=== PATIENT | female | born 1955 | race Caucasian/White ===

== ENCOUNTER 2022-11-25 22:08 | Inpatient (IN) ==
--- NOTE | 2022-11-25 22:49 | XRay Report ---
SINGLE VIEW CHEST CLINICAL HISTORY: Fall. FINDINGS: An AP, portable, supine chest radiograph is obtained. No prior studies are available for co mparison at the time of dictation. The heart is mildly enlarged noting atherosclerotic calcification of the thoracic aorta. The pulmonary vasculature is noncongested. The lungs and pleural spaces are cl ear. No pneumothorax is seen. The skeletal structures are osteopenic. The bony thorax is grossly inta ct. IMPRESSION: No acute cardiopulmonary abnormality. ACT 112: Negative or not required by law. Electronically signed by: Bao Mac M.D. 11/25/2022 10:48 PM
--- NOTE | 2022-11-25 22:54 | CT Scan Report ---
CT SCAN OF THE BRAIN WITHOUT IV CONTRAST CLINICAL HISTORY: Fall. Head injury. COMPARISON STUDY: No priors. TECHNIQUE: Unenhanced axial CT scan of the brain is performed from the vertex to the skull base. A do se lowering technique was utilized adhering to the principles of ALARA. CT DOSE: 547.75 mGy.cm FINDINGS: Brain parenchyma: There is age-related involutional change noting mild subcortical and periventricula r microangiopathic disease. There is no hemorrhage, mass effect, or evidence of acute territorial isc hemia by CT criteria. Fontana-white matter differentiation is preserved. No extra-axial fluid collection is seen. Ventricles, sulci, cisterns: Prominent secondary to involutional change. Intracranial vasculature: There is atherosclerotic calcification of the cavernous carotid and vertebr al arteries. Calvarium: Skeletal structures are osteopenic. There is no depressed calvarial fracture. Soft tissues: There is a small frontal scalp contusion. Sinuses and mastoids: The visualized paranasal sinuses are clear. The mastoid air cells are well pneu matized. Orbits: The bony orbits are grossly intact. IMPRESSION: There is no hemorrhage, mass effect, or evidence of acute territorial ischemia by CT xiang rivas. ACT 112: Negative or not required by law. Electronically signed by: Bao Mac M.D. 11/25/2022 10:51 PM
[2022-11-25 23:01] LABS: Basophils # (auto) 0.05 K/uL (0-0.2); Basophils % (auto) 0.6 %; Eosinophils # (auto) 0.08 K/uL (0-0.50); Eosinophils % (auto) 0.9 %; Hematocrit (blood only) 22.7 % (37.0-47.0); Hemoglobin 7.6 g/dl (12.0-16.0); Immature Granulocytes # (auto) 0.11 K/uL (0.01-0.20); Immature Granulocytes % (auto) 1.3 %; Lymphocytes # (auto) 1.36 K/uL (1.2-3.4); Lymphocytes % (auto) 15.7 %; Mean Corpuscular Hemoglobin 30.9 pg (25.0-34.0); Mean Corpuscular Hgb Conc 33.5 g/dL (32.0-36.0); Mean Corpuscular Volume 92.3 fL (80.0-100.0); Mean Platelet Volume 10.7 fL (9.4-12.4); Monocytes # (auto) 0.77 K/uL (0.11-0.59); Monocytes % (auto) 8.9 %; Neutrophils % (auto) 72.6 %; Platelet Count 276 K/uL (130-400); RDW Coefficient of Variation 16.1 % (11.5-14.5); RDW Standard Deviation 53.7 fL (36.4-46.3); Red Blood Count 2.46 M/uL (4.20-5.40); White Blood Count 8.67 K/ul (4.8-10.8)
[2022-11-25 23:17] LABS: Albumin Globulin Ratio 0.8 (0.9-2); Albumin Level 2.2 gm/dl (3.4-5.0); BUN Creatinine Ratio 24.6 (10-20); Bilirubin,Total 0.2 mg/dl (0.2-1.0); Calcium 7.1 mg/dl (8.6-10.3); Creatinine Clr Calc Pharmacy 36.3 ml/min; Est GFR (African American) 47.4 ml/min; Est GFR (Non-African American) 40.9 ml/min; Globulin 2.7 gm/dl (2.5-4.0); Magnesium 1.4 mg/dl (1.7-2.4); Potassium 4.1 mmol/L (3.5-5.1); Total Protein 4.9 gm/dl (6.0-8.3)
[2022-11-25 23:23] LABS: Polychromasia 1+
--- NOTE | 2022-11-25 23:31 | CT Scan Report ---
Exam(s): CT C SPINE EXAM: CT Cervical Spine Without Intravenous Contrast CLINICAL HISTORY: Reason for exam: fall. TECHNIQUE: Axial computed tomography images of the cervical spine without intravenous contrast. Automated exposure control was utilized for the study. A dose lowering technique was utilized adhering to the principles of ALARA. COMPARISON: No relevant prior studies available. FINDINGS: Vertebrae: Straightening of the normal cervical lordosis. No acute fracture. Discs/spinal canal/neural foramina: Mild to moderate multilevel degenerative change. No spinal canal stenosis. Soft tissues: Unremarkable. Vasculature: Dense calcific atherosclerotic disease of the carotid bulbs. IMPRESSION: No acute findings in the cervical spine. Electronically signed by: Imer Brunner MD 11/25/22 23:30 PM
--- NOTE | 2022-11-26 00:01 | Emergency Department Note ---
Impression & Plan Fall, Hallucinations ED Provider Note Provider: Navid Del Valle MD DATE OF SERVICE: 11/25/2022 CHIEF COMPLAINT: Fall HISTORY OF PRESENT ILLNESS: Patient is a 67-year-old female history of sepsis and bacteremia related to pyelonephritis status post nephrectomy at [place] with a history of heart failure and cardiomyopathy as well as atrial fibrillation and type 2 diabetes presenting from [facility] today after a fall. Patient is in a c-collar upon my evaluation resting in the bed. Patient without current pain complaint at this time. Denies headache or dizziness. Denies neck pain. Denies injury to her extremities or chest pain. Denies any significant dizziness. Is a little bit fatigued requiring some prompting to talk to me. Did have evening medications including Ambien before coming today by report. Patient states that she just felt weak and cannot really describe more what happened she fell and struck her head. Patient called prior to arrival and reported that she did have a bit of a headache for them and fell and was coming in for evaluation. Fall was around 915p by their report. PAST MEDICAL HISTORY: As noted above MEDICATIONS: Reviewed medication list in the facility includes subcu heparin as well as Ambien SOCIAL HISTORY: Currently in [facility] for rehab PHYSICAL EXAM: GENERAL: alert and oriented to verbal stimuli initially resting with eyes closed in no acute distress on stretcher with cervical collar in place Head: normocephalic and atraumatic EYES: No injection, discharge or icterus. PERRL, EOMI. NECK: Trachea midline. Supple no midline cervical tenderness ENT: Mucous membranes pink and moist. Pharynx without erythema or exudate. LUNGS: Airway patent. No retractions. Breath sounds clear with good air entry bilaterally. HEART: Regular rate and rhythm. No chest wall tenderness ABDOMEN: Soft and non-tender, without guarding or rebound. With a bandage healing left mid abdominal wound. SKIN: Acyanotic, warm, dry, without rashes EXTREMITIES: Without swelling, tenderness or deformity NEUROLOGICAL: No focal deficits. No aphasia. No facial droop or slurred speech. Normal strength and tone in the extremities. Sensation to gross touch normal. EK bpm normal sinus rhythm. No PVC. No acute ST segment elevation or depression with a QTc of 471. CONTINUOUS CARDIAC MONITORING: was ordered and showed a heart rate of 70s-90s bpm in normal sinus rhythm GCS 15. Patient's laboratory studies and imaging reviewed. Differential includes Fracture, dislocation, contusion, intra-abdominal, pneumothorax, intrathoracic, intracranial, neurologic, compartment syndrome, as well as other pathologies. IMPRESSION/MEDICAL DECISION MAKING: Patient without clear evidence of physical trauma from fall. On exam do not see significant pain with palpation of the extremities thorax pelvis abdomen. No signs of compartment syndrome. Moves lower legs and hips well without significant discomfort and doubt fracture here. Abdominal wound seems to be healing fairly well. While somewhat drowsy did take an Ambien before coming in. CT of the head and cervical spine per radiology reports without evidence of acute fractures or intracranial injury/bleeding. Chest x-ray reassuring per radiology. Afebrile here not hypotensive actually somewhat hypertensive. Basic blood work here with anemia of 7.6 but no leukocytosis. No severe renal dysfu nction with mild hypomagnesemia. EKG is reassuring. We will get some magnesium repletion. Do not see any signs of active bleeding or significant pain indicative of active bleeding at this time. Hemoglobin has down trended from several days ago at 9.1 on the . To consider returning to the facility for evaluation of upon reevaluation patient again resting but arousable to discussion. However she states that her little grandchildren are running around the room and that she is seeing them when they obviously are not there. This could be a sequelae of just the Ambien but obviously given some confusion concerns about discharge at this time. Discussed with hospitalist for further observation here. Later alerted by nursing staff several hours later the patient got up was more alert and did remember the events earlier in the evening and is having some diarrhea. Stool testing ordered. Again question of this may be a component of her Ambien from earlier. Has been seen by the hospitalist. DIAGNOSIS: Fall, hypomagnesemia, anemia, hallucinations DISPOSITION: Being evaluated the hospitalist Patient was agreeable with this plan. Past Med/Surg History Social History Smoking Status: Never smoker Preferred Language: Spanish Feels Safe at Home: Yes Allergies Allergies Allergy/AdvReac Type Severity Reaction Status Date / Time alcohol Allergy Hives Verified 11/26/22 01:02 Penicillins Allergy Hives Verified 11/26/22 01:02 soap AdvReac Rash Verified 11/26/22 01:02 Home Meds Home Medications Medication Instructions Recorded Confirmed acetaminophen 325 mg tablet 650 mg PO Q4H PRN Pain/TEMP 11/25/22 11/25/22 (Tylenol) atorvastatin 10 mg tablet 10 mg PO HS 11/25/22 11/25/22 benzocaine 20 % mucosal gel 1 ea mucous membrane QID PRN 11/25/22 11/25/22 INSIDE OF LIP bupropion HCl 75 mg tablet 75 mg PO Q12H 11/25/22 11/25/22 calcium carbonate 500 mg-vitamin 1 tab PO DAILY 11/25/22 11/25/22 D3 10 mcg (400 unit) tablet (Calcium 500 + D) conj estrogen-medroxyprogesterone 1 tab PO DAILY 11/25/22 11/25/22 0.625 mg-2.5 mg tablet (Prempro) cyanocobalamin (vitamin B-12) 1,000 mcg PO DAILY 11/25/22 11/25/22 1,000 mcg tablet (Vitamin B-12) cyclobenzaprine 10 mg tablet 10 mg PO TID PRN MUSCLE SPASMS 11/25/22 11/25/22 docusate sodium 100 mg capsule 100 mg PO BIDM 11/25/22 11/25/22 ergocalciferol (vitamin D2) 1,250 1,250 mcg PO 2XWK 11/25/22 11/25/22 mcg (50,000 unit) capsule (Vitamin D2) escitalopram oxalate 10 mg tablet 20 mg PO DAILY 11/25/22 11/25/22 (Lexapro) famotidine 20 mg tablet 20 mg PO HS 11/25/22 11/25/22 ferrous sulfate 325 mg (65 mg 325 mg PO QDL 11/25/22 11/25/22 iron) tablet furosemide 40 mg tablet (Lasix) 40 mg PO DAILY 11/25/22 11/25/22 gabapentin 100 mg capsule 100 mg PO Q12H 11/25/22 11/25/22 heparin (porcine) 5,000 unit/mL 5,000 unit subcut Q8H 11/25/22 11/25/22 injection solution hydrocodone 5 mg-acetaminophen 325 1 tab PO TID PRN Pain (Scale Score 11/25/22 11/25/22 mg tablet 4-6) insulin glargine 100 unit/mL 12 unit subcut HS 11/25/22 11/25/22 subcutaneous solution (Lantus U-100 Insulin) insulin regular human 100 unit/mL 1 sliding scale dose subcut ACHS 11/25/22 11/25/22 injection solution (Humulin R Regular U-100 Insulin) magnesium hydroxide 400 mg/5 mL 30 ml PO DAILY PRN Constipation 11/25/22 11/25/22 oral suspension (Milk of Magnesia) metoprolol succinate 25 mg 12.5 mg PO DAILY 11/25/22 11/25/22 tablet,extended release 24 hr multivitamin with minerals 1 tab PO DAILY 11/25/22 11/25/22 naloxone 4 mg/actuation nasal spray 4 mg intranasal DIRECTED PRN 11/25/22 11/25/22 OVER SEDATION ondansetron HCl 4 mg tablet 4 mg PO Q4H PRN NAUSEA/VOMITING 11/25/22 11/25/22 pantoprazole 40 mg tablet,delayed 40 mg PO .AC BID 11/25/22 11/25/22 release polyethylene glycol 3350 17 17 g PO BID 11/25/22 11/25/22 gram/dose oral powder (Miralax) polyethylene glycol 3350 17 17 g PO QDL PRN Constipation 11/25/22 11/25/22 gram/dose oral powder (Miralax) sennosides 8.6 mg-docusate sodium 2 tab-cap PO BIDM 11/25/22 11/25/22 50 mg capsule (Senna Plus) sennosides 8.6 mg-docusate sodium 1 tab-cap PO QDL PRN Constipation 11/25/22 11/25/22 50 mg tablet (Senokot-S) zolpidem 5 mg tablet (Ambien) 12.5 mg PO HS 11/25/22 11/25/22 Results & Data (ED) Vital Signs Vital Signs - 24 hr 11/25/22 22:13 11/25/22 22:45 11/25/22 22:12 Temperature 36.6 C Temperature Source Oral Pulse Rate 88 88 89 Pulse Rate from SpO2 Sensor 88 Respiratory Rate 20 12 Respiratory Effort / Characteristics Non-Labored Spontaneous Respiratory Depth Normal Blood Pressure 151/74 H 151/74 H Blood Pressure Mean 99 99 Pulse Oximetry 97 97 Oxygen Delivery Method Room Air Room Air Sepsis Recent Fever Within 48 Hours No Sepsis New/Unexplained Change in Mental Status No Sepsis Action Taken by Nursing No Action Required 11/25/22 23:00 11/26/22 00:00 11/26/22 01:00 Temperature Temperature Source Pulse Rate 82 78 Pulse Rate from SpO2 Sensor 82 83 79 Respiratory Rate 18 16 Respiratory Effort / Characteristics Respiratory Depth Blood Pressure 148/76 H 150/74 H Blood Pressure Mean 100 99 Pulse Oximetry 98 94 95 Oxygen Delivery Method Room Air Room Air Room Air Sepsis Recent Fever Within 48 Hours Sepsis New/Unexplained Change in Mental Status Sepsis Action Taken by Nursing 11/26/22 02:00 Temperature Temperature Source Pulse Rate 76 Pulse Rate from SpO2 Sensor 76 Respiratory Rate 13 Respiratory Effort / Characteristics Respiratory Depth Blood Pressure Blood Pressure Mean Pulse Oximetry 99 Oxygen Delivery Method Room Air Sepsis Recent Fever Within 48 Hours Sepsis New/Unexplained Change in Mental Status Sepsis Action Taken by Nursing Laboratory Data 11/25/22 22:20 11/25/22 22:20 Lab Results 11/25/22 11/25/22 11/26/22 Range/Units 22:20 22:20 00:37 WBC 8.67 (4.8-10.8) K/ul RBC 2.46 L (4.20-5.40) M/uL Hgb 7.6 L (12.0-16.0) g/dl Hct 22.7 L (37.0-47.0) % MCV 92.3 (80.0-100.0) fL MCH 30.9 (25.0-34.0) pg MCHC 33.5 (32.0-36.0) g/dL RDW Std Deviation 53.7 H (36.4-46.3) fL RDW Coeff of Ramin 16.1 H (11.5-14.5) % Plt Count 276 (130-400) K/uL MPV 10.7 (9.4-12.4) fL Immature Gran % (Auto) 1.3 % Neut % (Auto) 72.6 % Lymph % (Auto) 15.7 % [place] % (Auto) 8.9 % Eos % (Auto) 0.9 % Baso % (Auto) 0.6 % Neut # (Auto) 6.30 (1.40-6.50) K/uL Lymph # (Auto) 1.36 (1.2-3.4) K/uL [place]win # (Auto) 0.77 H (0.11-0.59) K/uL Eos # (Auto) 0.08 (0-0.50) K/uL Baso # (Auto) 0.05 (0-0.2) K/uL Immature Gran # (Auto) 0.11 (0.01-0.20) K/uL Polychromasia 1+ Sodium 138 (136-145) mmol/L Potassium 4.1 (3.5-5.1) mmol/L Chloride 110 H (98-107) mmol/L Carbon Dioxide 22 (21-32) mmol/L Anion Gap 6 (3-11) BUN 33 H (6-23) mg/dl Creatinine 1.34 H (0.6-1.2) mg/dl Est Cr Clr Drug Dosing 36.3 ml/min Est GFR ( Amer) 47.4 ml/min Est GFR (Non-Af Amer) 40.9 ml/min BUN/Creatinine Ratio 24.6 H (10-20) Glucose 203 H (70-99(Fasting)) mg/dl Calcium 7.1 L (8.6-10.3) mg/dl Magnesium 1.4 L (1.7-2.4) mg/dl Total Bilirubin 0.2 (0.2-1.0) mg/dl AST 29 (13-39) U/L ALT 17 (7-52) U/L Alkaline Phosphatase 162 H (34-104) U/L Total Protein 4.9 L (6.0-8.3) gm/dl Albumin 2.2 L (3.4-5.0) gm/dl Globulin 2.7 (2.5-4.0) gm/dl Albumin/Globulin Ratio 0.8 L (0.9-2) SARS-CoV-2, RNA, NAAT NEGATIVE (NEGATIVE) Administered Medications Sodium Chloride (Nss 1000ml) 1,000 mls @ 75 mls/hr IV .[id number] ONE Stop: 11/26/22 14:05 Last Admin: 11/26/22 01:09 Dose: 75 mls/hr Documented By: LATHA Miscellaneous Information (Patient's Allergy Info Needs Entered) 1 each N/A Q3 0M VICKY Stop: 12/25/22 20:59 Last Admin: 11/26/22 01:09 Dose: 1 each Documented By: Admin: 11/26/22 01:09 Dose: 1 each Documented By: LATHA Discontinued Medications Magnesium Sulfate/Dextrose (Magnesium Sulfate / D5w) 1 gm in 100 mls @ 200 mls/hr IV Q30M VICKY Stop: 11/26/22 00:44 Last Infusion: 11/26/22 01:09 Dose: 0 mls/hr Documented By: Admin: 11/26/22 00:34 Dose: 200 mls/hr Documented By: Infusion: 11/26/22 00:34 Dose: 200 mls/hr Documented By: Admin: 11/26/22 00:07 Dose: 200 mls/hr Documented By: LATHA Imaging Data Radiologist's Impression: Chest X-Ray 11/25/22 22:20 SINGLE VIEW CHEST CLINICAL HISTORY: Fall. FINDINGS: An AP, portable, supine chest radiograph is obtained. No prior studies are available for comparison at the time of dictation. The heart is mildly enlarged noting atherosclerotic calcification of the thoracic aorta. The pulmonary vasculature is noncongested. The lungs and pleural spaces are clear. No pneumothorax is seen. The skeletal structures are osteopenic. The bony thorax is grossly intact. IMPRESSION: No acute cardiopulmonary abnormality. ACT 112: Negative or not required by law. Electronically signed by: Bao Mac M.D. 11/25/2022 10:[address] 11/25/22 22:21 CT SCAN OF THE BRAIN WITHOUT IV CONTRAST CLINICAL HISTORY: Fall. Head injury. COMPARISON STUDY: No priors. TECHNIQUE: Unenhanced axial CT scan of the brain is performed from the vertex to the skull base. A dose lowering technique was utilized adhering to the principles of ALARA. CT DOSE: 547.75 mGy.cm FINDINGS: Brain parenchyma: There is age-related involutional change noting mild subcortical and periventricular microangiopathic disease. There is no hemorrhage, mass effect, or evidence of acute territorial ischemia by CT criteria. Fontana-white matter differentiation is preserved. No extra-axial fluid collection is seen. Ventricles, sulci, cisterns: Prominent secondary to involutional change. Intracranial vasculature: There is atherosclerotic calcification of the cavernous carotid and vertebral arteries. Calvarium: Skeletal structures are osteopenic. There is no depressed calvarial fracture. Soft tissues: There is a small frontal scalp contusion. Sinuses and mastoids: The visualized paranasal sinuses are clear. The mastoid air cells are well pneumatized. Orbits: The bony orbits are grossly intact. IMPRESSION: There is no hemorrhage, mass effect, or evidence of acute territorial ischemia by CT criteria. ACT 112: Negative or not required by law. Electronically signed by: Bao Mac M.D. 11/25/2022 10:[address] 11/25/22 22:57 Exam(s): CT C SPINE EXAM: CT Cervical Spine Without Intravenous Contrast CLINICAL HISTORY: Reason for exam: fall. TECHNIQUE: Axial computed tomography images of the cervical spine without intravenous contrast. Automated exposure control was utilized for the study. A dose lowering technique was utilized adhering to the principles of ALARA. COMPARISON: No relevant prior studies available. FINDINGS: Vertebrae: Straightening of the normal cervical lordosis. No acute fracture. Discs/spinal canal/neural foramina: Mild to moderate multilevel degenerative change. No spinal canal stenosis. Soft tissues: Unremarkable. Vasculature: Dense calcific atherosclerotic disease of the carotid bulbs. IMPRESSION: No acute findings in the cervical spine. Electronically signed by: Imer Brunner MD 11/25/22 23:30 PM Discharge Plan Visit Data Chief Complaint: Fall ED Provider: Navid Del Valle Discharge Problem: Fall, Hallucinations Patient Disposition: Being Evaluated by Hospitalist Condition: Fair Forms Stand Alone Forms: [facility] [employer] Prescriptions Prescriptions: No Action cyclobenzaprine [Flexeril] 10 mg Tablet 10 mg PO TID PRN (Reason: MUSCLE SPASMS) furosemide [Lasix] 40 mg Tablet 40 mg PO DAILY Rx Instructions: STARTED 11/24/22 FOR 3 DAYS, ENDS 11/27/22. acetaminophen [Tylenol] 325 mg Tablet 650 mg PO Q4H PRN (Reason: Pain/TEMP) insulin glargine [Lantus U-100 Insulin] 100 unit/mL Solution 12 unit SUBCUT HS atorvastatin 10 mg Tablet 10 mg PO HS hydrocodone-acetaminophen 5-325 mg Tablet 1 tab PO TID PRN (Reason: Pain (Scale Score 4-6)) Rx Instructions: UNSURE OF STRENGTH, NOT NOTED ON MED LIST. ondansetron HCl [Zofran] 4 mg Tablet 4 mg PO Q4H PRN (Reason: NAUSEA/VOMITING) sennosides-docusate sodium [Senokot-S] 8.6-50 mg Tablet 1 tab-cap PO QDL PRN (Reason: Constipation) cyanocobalamin (vitamin B-12) [Vitamin B-12] 1,000 mcg Tablet 1,000 mcg PO DAILY famotidine 20 mg Tablet 20 mg PO HS magnesium hydroxide [Milk of Magnesia] 400 mg/5 mL Suspension 30 ml PO DAILY PRN (Reason: Constipation) pantoprazole 40 mg Tablet,Delayed Release (Dr/Ec) 40 mg PO .AC BID ferrous sulfate 325 mg (65 mg iron) Tablet 325 mg PO QDL Humulin R Regular U-100 Insuln 100 unit/mL Solution 1 sliding scale dose SUBCUT ACHS bupropion HCl 75 mg Tablet 75 mg PO Q12H docusate sodium 100 mg Capsule 100 mg PO BIDM zolpidem [Ambien] 5 mg Tablet 12.5 mg PO HS gabapentin 100 mg Capsule 100 mg PO Q12H metoprolol succinate 25 mg Tablet Extended Release 24 Hr 12.5 mg PO DAILY ergocalciferol (vitamin D2) [Vitamin D2] 1,250 mcg (50,000 unit) Capsule 1,250 mcg PO 2XWK Rx Instructions: WEDNESDAY & WEDNESDAYS multivitamin with minerals Tablet 1 tab PO DAILY polyethylene glycol 3350 [Miralax] 17 gram/dose Powder 17 g PO BID polyethylene glycol 3350 [Miralax] 17 gram/dose Powder 17 g PO QDL PRN (Reason: Constipation) benzocaine 20 % Gel 1 ea MUCOUS MEMBRANE QID PRN (Reason: INSIDE OF LIP) heparin (porcine) 5,000 unit/mL Solution 5,000 unit SUBCUT Q8H Prempro 0.625-2.5 mg tablet 1 tab PO DAILY escitalopram oxalate [Lexapro] 10 mg Tablet 20 mg PO DAILY calcium carbonate-vitamin D3 [Calcium 500 + D] 500 mg-10 mcg (400 unit) Tablet 1 tab PO DAILY naloxone 4 mg/actuation [place],Non-Aerosol 4 mg INTRANASAL DIRECTED PRN (Reason: OVER SEDATION) Senna Plus 8.6-50 mg Capsule 2 tab-cap PO BIDM Referrals Referrals: Varinder Wynne M.D. [Primary Care Provider] -
[2022-11-26] MEDS: MAGNESIUM SULFATE / D5W 1 GM/100 ML BAG IV SCH ×2 (00:07→00:34)
[2022-11-26] MEDS ORDERED: SODIUM CHLORIDE 0.9% 1000ML 1,000 ML IV ONE (00:46)
[2022-11-26] MEDS: Patient's ALLERGY Info needs ENTERED SCH ×4 (01:09→07:41)
[2022-11-26] MEDS ORDERED: Nursing to Pharmacy Communication SCH (01:30)
[2022-11-26 03:38] LABS: Thyroid Stimulating Hormone 10.468 uIu/ml (0.300-4.500)
--- NOTE | 2022-11-26 03:48 | History & Physical Report ---
Date of Service November 26, 2022 Assessment & Plan (1) Encephalopathy: Plan: Patient noted to be lethargic on exam. Multifactorial : Polypharmacy, patient on multiple neuropsychotropic medications Hypoglycemia, DM2 currently on insulin at rehab facility, suboptimal control as of recent hemoglobin A1c of 8.2 this month. Acute on chronic anemia, hemoglobin drop from baseline, FOBT done at the ER was positive Laxative induced diarrhea rule out C. difficile chronic diastolic heart failure, patient on the dry side hx PAF, patient NSR, outpatient Zio patch recommended by [facility] ICU HTN, slightly elevated ARF, improved kidney function following [facility] discharge last week hyperlipidemia, on statin Rx MED on CPAP history DVT as per records hx GERD recent R nephrectomy for emphysematous pyelonephritis Medical telemetry Appropriate to hold home neuropsychotropic meds for now until patient mentation back to baseline Decrease basal insulin, ISS BG goal 1 10-1 40, carb count coverage Transfuse PRBC to maintain hemoglobin at 8 and above Inpatient GI consult for occult GI bleed causing hemoglobin drop from baseline as per patient preference Hold laxatives for now, check C. difficile DVT prophylaxis with SCDs Re: Occult GI bleed Full code Text document was generated using Thoof voice recognition software. It may contain grammatical or spelling errors. Kindly contact undersigned for clarification of any documentation item in question. History of Present Illness Chief Complaint: Fall, weakness Primary Care Provider: Varinder Wynne M.D. History obtained from patient and records. Medical history significant for chronic diastolic heart failure (EF 55%, TTE 2022), PAF, HTN, hyperlipidemia, DM2 on oral medications, MED on CPAP, history DVT as per records, GERD, history of gastric bypass, chronic anemia (baseline hemoglobin 8-9), recent nephrectomy for complicated UTI, anxiety/mood disorder. Patient confined at [facility] from November 12 to November 15, 2022 for hyperglycemic crisis, rhabdomyolysis and urosepsis. Hemoglobin A1c noted to be 8.2. Initial TTE showed EF 30 to 35%. CT abdomen pelvis showed right hydronephrosis and perinephric stranding, abscesses, and emphysematous changes. Blood cultures Klebsiella erogenous. Patient transferred to [facility] and confined from November 15 to 2022 for Urology services for emphysematous pyelonephritis. Patient underwent right nephrectomy. Transient atrial fibrillation noted during ICU confinement. TTE showed EF of 55%. Outpatient Zio patch recommended. Serum creatinine 1.5, hemoglobin 9 on discharge from [facility] to [facility] rehab facility last week. Increased weakness noted at rehab facility yesterday. Patient chest pain, SOB, syncope. Mild headache symptoms. Watery stools without abdominal pain. Head trauma from fall. Patient noted to be more confused than usual. Patient brought to the ER for evaluation. 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 [employer] Allergies Allergy/AdvReac Type Severity Reaction Status Date / Time alcohol Allergy Hives Verified 11/26/22 01:02 Penicillins Allergy Hives Verified 11/26/22 01:02 soap AdvReac Rash Verified 11/26/22 01:02 Home Medications Medication Instructions Recorded Confirmed Type acetaminophen 325 mg tablet 650 mg PO Q4H PRN Pain/TEMP 11/25/22 11/25/22 History (Tylenol) atorvastatin 10 mg tablet 10 mg PO HS 11/25/22 11/25/22 History benzocaine 20 % mucosal gel 1 ea mucous membrane QID PRN 11/25/22 11/25/22 History INSIDE OF LIP bupropion HCl 75 mg tablet 75 mg PO Q12H 11/25/22 11/25/22 History calcium carbonate 500 mg-vitamin 1 tab PO DAILY 11/25/22 11/25/22 History D3 10 mcg (400 unit) tablet (Calcium 500 + D) conj estrogen-medroxyprogesterone 1 tab PO DAILY 11/25/22 11/25/22 History 0.625 mg-2.5 mg tablet (Prempro) cyanocobalamin (vitamin B-12) 1,000 mcg PO DAILY 11/25/22 11/25/22 History 1,000 mcg tablet (Vitamin B-12) cyclobenzaprine 10 mg tablet 10 mg PO TID PRN MUSCLE SPASMS 11/25/22 11/25/22 History docusate sodium 100 mg capsule 100 mg PO BIDM 11/25/22 11/25/22 History ergocalciferol (vitamin D2) 1,250 1,250 mcg PO 2XWK 11/25/22 11/25/22 History mcg (50,000 unit) capsule (Vitamin D2) escitalopram oxalate 10 mg tablet 20 mg PO DAILY 11/25/22 11/25/22 History (Lexapro) famotidine 20 mg tablet 20 mg PO HS 11/25/22 11/25/22 History ferrous sulfate 325 mg (65 mg 325 mg PO QDL 11/25/22 11/25/22 History iron) tablet furosemide 40 mg tablet (Lasix) 40 mg PO DAILY 11/25/22 11/25/22 History gabapentin 100 mg capsule 100 mg PO Q12H 11/25/22 11/25/22 History heparin (porcine) 5,000 unit/mL 5,000 unit subcut Q8H 11/25/22 11/25/22 History injection solution hydrocodone 5 mg-acetaminophen 325 1 tab PO TID PRN Pain (Scale Score 11/25/22 11/25/22 History mg tablet 4-6) insulin glargine 100 unit/mL 12 unit subcut HS 11/25/22 11/25/22 History subcutaneous solution (Lantus U-100 Insulin) insulin regular human 100 unit/mL 1 sliding scale dose subcut ACHS 11/25/22 11/25/22 History injection solution (Humulin R Regular U-100 Insulin) magnesium hydroxide 400 mg/5 mL 30 ml PO DAILY PRN Constipation 11/25/22 11/25/22 History oral suspension (Milk of Magnesia) metoprolol succinate 25 mg 12.5 mg PO DAILY 11/25/22 11/25/22 History tablet,extended release 24 hr multivitamin with minerals 1 tab PO DAILY 11/25/22 11/25/22 History naloxone 4 mg/actuation nasal spray 4 mg intranasal DIRECTED PRN 11/25/22 11/25/22 History OVER SEDATION ondansetron HCl 4 mg tablet 4 mg PO Q4H PRN NAUSEA/VOMITING 11/25/22 11/25/22 H istory pantoprazole 40 mg tablet,delayed 40 mg PO .AC BID 11/25/22 11/25/22 History release polyethylene glycol 3350 17 17 g PO BID 11/25/22 11/25/22 History gram/dose oral powder (Miralax) polyethylene glycol 3350 17 17 g PO QDL PRN Constipation 11/25/22 11/25/22 History gram/dose oral powder (Miralax) sennosides 8.6 mg-docusate sodium 2 tab-cap PO BIDM 11/25/22 11/25/22 History 50 mg capsule (Senna Plus) sennosides 8.6 mg-docusate sodium 1 tab-cap PO QDL PRN Constipation 11/25/22 11/25/22 History 50 mg tablet (Senokot-S) zolpidem 5 mg tablet (Ambien) 12.5 mg PO HS 11/25/22 11/25/22 History Past Med/Surg History Social History Smoking Status: Unknown if ever smoked Hx Alcohol Use: No Hx Substance Use: No Preferred Language: Guatemalan Beliefs That Will Affect Care: None Current Living Situation: Rehab Feels Safe at Home: Yes Review of Systems Review of Systems: As per HPI, all other systems reviewed and negative Physical Exam Physical Exam: GENERAL: Lethargic, comfortable, no respiratory distress SKIN: Pallor, warm HEENT: Pale palpebral conjunctivae, no ptosis, dry buccal mucosa NECK : Supple, no tenderness CHEST : Decreased breath sounds, no tenderness HEART : RRR, no obvious murmurs ABDOMEN: Some distention, nontender RECTAL : Intact sphincter, brown stool (FOBT negative) EXTREMITIES : No LE swelling/tenderness, no other conspicuous deformities noted NEUROLOGIC : Lethargic, no facial asymmetry, no other gross focality Results & Data Results & Data Vital Signs (Past 12 Hours) Vital Signs Temp Pulse Resp BP Pulse Ox O2 Del Method 11/26/22 03:00 75 19 97 Room Air 11/26/22 02:00 76 13 99 Room Air 11/26/22 01:00 78 16 150/74 H 95 Room Air 11/26/22 00:00 82 18 148/76 H 94 Room Air 11/25/22 23:00 98 Room Air 11/25/22 22:12 89 12 151/74 H 97 Room Air 11/25/22 22:45 36.6 C 88 20 151/74 H 97 Room Air 11/25/22 22:13 88 Laboratory Results Laboratory Results WBC 8.67 K/ul (4.8-10.8) 11/25/22 22:20 RBC 2.46 M/uL (4.20-5.40) L 11/25/22 22:20 Hgb 7.6 g/dl (12.0-16.0) L 11/25/22 22:20 Hct 22.7 % (37.0-47.0) L 11/25/22 22:20 MCV 92.3 fL (80.0-100.0) 11/25/22 22:20 MCH 30.9 pg (25.0-34.0) 11/25/22 22:20 MCHC 33.5 g/dL (32.0-36.0) 11/25/22 22:20 RDW Std Deviation 53.7 fL (36.4-46.3) H 11/25/22 22:20 RDW Coeff of Ramin 16.1 % (11.5-14.5) H 11/25/22 22:20 Plt Count 276 K/uL (130-400) 11/25/22 22:20 MPV 10.7 fL (9.4-12.4) 11/25/22 22:20 Immature Gran % (Auto) 1.3 % 11/25/22 22:20 Neut % (Auto) 72.6 % 11/25/22 22:20 Lymph % (Auto) 15.7 % 11/25/22 22:20 [place] % (Auto) 8.9 % 11/25/22 22:20 Eos % (Auto) 0.9 % 11/25/22 22:20 Baso % (Auto) 0.6 % 11/25/22 22:20 Neut # (Auto) 6.30 K/uL (1.40-6.50) 11/25/22 22:20 Lymph # (Auto) 1.36 K/uL (1.2-3.4) 11/25/22 22:20 [place] # (Auto) 0.77 K/uL (0.11-0.59) H 11/25/22 22:20 Eos # (Auto) 0.08 K/uL (0-0.50) 11/25/22 22:20 Baso # (Auto) 0.05 K/uL (0-0.2) 11/25/22 22:20 Immature Gran # (Auto) 0.11 K/uL (0.01-0.20) 11/25/22 22:20 Polychromasia 1+ 11/25/22 22:20 Sodium 138 mmol/L (136-145) 11/25/22 22:20 Potassium 4.1 mmol/L (3.5-5.1) 11/25/22 22:20 Chloride 110 mmol/L (98-107) H 11/25/22 22:20 Carbon Dioxide 22 mmol/L (21-32) 11/25/22 22:20 Anion Gap 6 (3-11) 11/25/22 22:20 BUN 33 mg/dl (6-23) H 11/25/22 22:20 Creatinine 1.34 mg/dl (0.6-1.2) H 11/25/22 22:20 Est Cr Clr Drug Dosing 36.3 ml/min 11/25/22 22:20 Est GFR ( Amer) 47.4 ml/min 11/25/22 22:20 Est GFR (Non-Af Amer) 40.9 ml/min 11/25/22 22:20 BUN/Creatinine Ratio 24.6 (10-20) H 11/25/22 22:20 Glucose 203 mg/dl (70-99(Fasting)) H 11/25/22 22:20 Calcium 7.1 mg/dl (8.6-10.3) L 11/25/22 22:20 Magnesium 1.4 mg/dl (1.7-2.4) L 11/25/22 22:20 Total Bilirubin 0.2 mg/dl (0.2-1.0) 11/25/22 22:20 AST 29 U/L (13-39) 11/25/22 22:20 ALT 17 U/L (7-52) 11/25/22 22:20 Alkaline Phosphatase 162 U/L (34-104) H 11/25/22 22:20 Total Protein 4.9 gm/dl (6.0-8.3) L 11/25/22 22:20 Albumin 2.2 gm/dl (3.4-5.0) L 11/25/22 22:20 Globulin 2.7 gm/dl (2.5-4.0) 11/25/22 22:20 Albumin/Globulin Ratio 0.8 (0.9-2) L 11/25/22 22:20 TSH 10.468 uIu/ml (0.300-4.500) H 11/25/22 22:20 SARS-CoV-2, RNA, NAAT NEGATIVE (NEGATIVE) 11/26/22 00:37 Impressions Chest X-Ray 11/25/22 22:20 SINGLE VIEW CHEST CLINICAL HISTORY: Fall. FINDINGS: An AP, portable, supine chest radiograph is obtained. No prior studies are available for comparison at the time of dictation. The heart is mildly enlarged noting atherosclerotic calcification of the thoracic aorta. The pulmonary vasculature is noncongested. The lungs and pleural spaces are clear. No pneumothorax is seen. The skeletal structures are osteopenic. The bony thorax is grossly intact. IMPRESSION: No acute cardiopulmonary abnormality. ACT 112: Negative or not required by law. Electronically signed by: Bao Mac M.D. 11/25/2022 10:[address] 11/25/22 22:21 CT SCAN OF THE BRAIN WITHOUT IV CONTRAST CLINICAL HISTORY: Fall. Head injury. COMPARISON STUDY: No priors. TECHNIQUE: Unenhanced axial CT scan of the brain is performed from the vertex to the skull base. A dose lowering technique was utilized adhering to the principles of ALARA. CT DOSE: 547.75 mGy.cm FINDINGS: Brain parenchyma: There is age-related involutional change noting mild subcortical and periventricular microangiopathic disease. There is no hemorrhage, mass effect, or evidence of acute territorial ischemia by CT criteria. Fontana-white matter differentiation is preserved. No extra-axial fluid collection is seen. Ventricles, sulci, cisterns: Prominent secondary to involutional change. Intracranial vasculature: There is atherosclerotic calcification of the cavernous carotid and vertebral arteries. Calvarium: Skeletal structures are osteopenic. There is no depressed calvarial fracture. Soft tissues: There is a small frontal scalp contusion. Sinuses and mastoids: The visualized paranasal sinuses are clear. The mastoid air cells are well pneumatized. Orbits: The bony orbits are grossly intact. IMPRESSION: There is no hemorrhage, mass effect, or evidence of acute territorial ischemia by CT criteria. ACT 112: Negative or not required by law. Electronically signed by: Bao Mac M.D. 11/25/2022 10:[address] 11/25/22 22:57 Exam(s): CT C SPINE EXAM: CT Cervical Spine Without Intravenous Contrast CLINICAL HISTORY: Reason for exam: fall. TECHNIQUE: Axial computed tomography images of the cervical spine without intravenous contrast. Automated exposure control was utilized for the study. A dose lowering technique was utilized adhering to the principles of ALARA. COMPARISON: No relevant prior studies available. FINDINGS: Vertebrae: Straightening of the normal cervical lordosis. No acute fracture. Discs/spinal canal/neural foramina: Mild to moderate multilevel degenerative change. No spinal canal stenosis. Soft tissues: Unremarkable. Vasculature: Dense calcific atherosclerotic disease of the carotid bulbs. IMPRESSION: No acute findings in the cervical spine. Electronically signed by: Imer Brunner MD 11/25/22 23:30 PM Diagnostic Findings EKG as per my interpretation :Rate 85, NSR, LAD, LAFB, septal infarct, T wave abnormalities septal leads, low voltage
[2022-11-26] MEDS ORDERED: MELATONIN 3 MG TAB PO PRN (03:54)
[2022-11-26 04:28] LABS: T4 Free Thyroxine 0.71 ng/dl (0.61-1.60)
[2022-11-26 04:30] LABS: Basophils # (auto) 0.05 K/uL (0-0.2); Basophils % (auto) 0.6 %; Eosinophils # (auto) 0.09 K/uL (0-0.50); Eosinophils % (auto) 1.1 %; Hematocrit (blood only) 25.5 % (37.0-47.0); Hemoglobin 8.2 g/dl (12.0-16.0); Immature Granulocytes % (auto) 1.2 %; Lymphocytes % (auto) 16.4 %; Mean Corpuscular Hemoglobin 29.4 pg (25.0-34.0); Mean Corpuscular Hgb Conc 32.2 g/dL (32.0-36.0); Mean Corpuscular Volume 91.4 fL (80.0-100.0); Mean Platelet Volume 9.8 fL (9.4-12.4); Monocytes # (auto) 0.72 K/uL (0.11-0.59); Monocytes % (auto) 8.4 %; Neutrophils # (auto) 6.18 K/uL (1.40-6.50); Neutrophils % (auto) 72.3 %; Platelet Count 324 K/uL (130-400); RDW Coefficient of Variation 15.9 % (11.5-14.5); RDW Standard Deviation 53.3 fL (36.4-46.3); Red Blood Count 2.79 M/uL (4.20-5.40); White Blood Count 8.54 K/ul (4.8-10.8)
[2022-11-26 04:50] LABS: BUN Creatinine Ratio 28.7 (10-20); Calcium 7.8 mg/dl (8.6-10.3); Creatinine Clr Calc Pharmacy 42.3 ml/min; Est GFR (Non-African American) 49.2 ml/min; Potassium 3.8 mmol/L (3.5-5.1)
[2022-11-26] MEDS ORDERED: GLUCAGON FOR INJ 1 MG VIAL SQ PRN (05:28)
[2022-11-26] MEDS ORDERED: ACETAMINOPHEN 325 MG TAB PO PRN (05:28)
[2022-11-26] MEDS ORDERED: GLUCOSE 40% GEL 15 GM TUBE PO PRN (05:28)
[2022-11-26] MEDS ORDERED: DEXTROSE 50% 50 ML SYRINGE IV PRN (05:28)
[2022-11-26] MEDS ORDERED: CARBOHYDRATES FOR HYPOGLYCEMIA PO PRN (05:28)
[2022-11-26] MEDS ORDERED: GLUCOSE 10 TAB/TUBE PO PRN (05:28)
[2022-11-26] MEDS ORDERED: POLYETHYLENE (MIRALAX) 17 GM PACK PO PRN (05:28)
[2022-11-26] MEDS: INSULIN ASPART PER UNIT CHARGE SC SCH ×4 (05:40→20:08)
[2022-11-26] MEDS ORDERED: PHARMACY GLYCEMIC MGMT CONSULT PRN (07:53)
[2022-11-26] MEDS ORDERED: D5W AND 1/2NSS 1,000 ML IV ONE (08:03)
[2022-11-26] MEDS: CYANOCOBALAMIN (B-12) 500 MCG TABLET PO SCH (08:16)
[2022-11-26] MEDS: PANTOprazole 40 MG TAB PO SCH ×2 (08:16→17:51)
[2022-11-26] MEDS: CEROVITE ADV FORMULA TAB PO SCH (08:16)
[2022-11-26] MEDS: METOPROLOL SUCC 25MG EXT REL TAB PO SCH (08:16)
[2022-11-26] MEDS: ACETAMINOPHEN 325 MG TAB PO PRN (08:19)
--- NOTE | 2022-11-26 10:58 | Gastrointestinal Consultation ---
Date of Consultation November 26, 2022 Assessment & Plan (1) Fall: (2) Anemia: Pt is a 67 yo female admitted after a fall. Noted to be anemic on presentation, currently blood ct similar to few day ago after her admission in [facility] for sepsis and s/p R nephrectomy 2/2 pyelonephritis. She denies any gross GI bleeding symptoms. Last EGD and colonoscopy in 2020 - Monitor blood ct and transfuse prn goal Hgb >7 - PPI coverage - Ferrous Sulfate 325mg daily - Monitor for s/s of GI bleeding - Consider repeat EGD and colonoscopy eval in OP setting for anemia eval - If blood ct decreases, consider CT abd/pelvis to r/o bleeding from nephrectomy bed - Avoid NSAIDs Supervising Physician Co-Signing Physician Notes I personally saw and evaluated the patient on 11/26/2022 with GEOVANNI Segura and agree with her findings and plan of care. 67 y/o F with history of gastric bypass admitted after a fall/syncopal episode found to have anemia with hgb of 7.6. Patient recently had a R nephrectomy 11/15 for sepsis and emphysematous pyelonephritis. hgb was 9.1 3 days ago. She states that she has had no signs of GI bleeding including melena, hematochezia, or hematemesis. States her stools are yellow and brown. Abdomen is soft and non- tender. Surgical site without obvious evidence of hematoma. She had an EGD and colonoscopy in 2020 were unremarkable. At this time she has no evidence of any GI bleeding. if H/H continues to drop wo uld recommend a CT of the abdomen and pelvis to make sure there is no bleeding from her recent nephrectomy. Otherwise we will plan for outpatient EGD and colonoscopy. Brittney Trinidad, DO Gastroenterology and Hepatology History of Present Illness Reason for Consultation: Anemia, occult GI bleed Requesting Physician: Dr. Power Ronquillo Attending Physician: Dr. Brittney Trinidad History of Present Illness Pt is a 67 yo female w w PMHx of gastric bypass, HTN, OA, HLD, DM II, Afib GERD, sepsis w bacteremia 2/2 pyelonephritis, s/p R nephrectomy at [facility] who presented yesterday w a fall at [facility]. She denies syncope, dizziness, CP, SOB. Just felt that she's weak. + frontal scalp contusion wo obvious fracture. She was found to be anemic on admission. Today's blood ct slightly increased w Hgb similar to when she was recently admitted at [facility] for her sepsis. She denies n/v, abd pain. Last night had BM and nurse told her there may be blood but she denies any dark tarry stools or rectal bleeding. Last EGD and colonoscopy in 2020 which were unremarkable. She denies NSAIDs, tobacco, ETOH. Allergies Allergy/AdvReac Type Severity Reaction Status Date / Time alcohol Allergy Hives Verified 11/26/22 01:02 Penicillins Allergy Hives Verified 11/26/22 01:02 soap AdvReac Rash Verified 11/26/22 01:02 Home Medications Medication Instructions Recorded Confirmed Type acetaminophen 325 mg tablet 650 mg PO Q4H PRN Pain/TEMP 11/25/22 11/25/22 History (Tylenol) atorvastatin 10 mg tablet 10 mg PO HS 11/25/22 11/25/22 History benzocaine 20 % mucosal gel 1 ea mucous membrane QID PRN 11/25/22 11/25/22 History INSIDE OF LIP bupropion HCl 75 mg tablet 75 mg PO Q12H 11/25/22 11/25/22 History calcium carbonate 500 mg-vitamin 1 tab PO DAILY 11/25/22 11/25/22 History D3 10 mcg (400 unit) tablet (Calcium 500 + D) conj estrogen-medroxyprogesterone 1 tab PO DAILY 11/25/22 11/25/22 History 0.625 mg-2.5 mg tablet (Prempro) cyanocobalamin (vitamin B-12) 1,000 mcg PO DAILY 11/25/22 11/25/22 History 1,000 mcg tablet (Vitamin B-12) cyclobenzaprine 10 mg tablet 10 mg PO TID PRN MUSCLE SPASMS 11/25/22 11/25/22 History docusate sodium 100 mg capsule 100 mg PO BIDM 11/25/22 11/25/22 History ergocalciferol (vitamin D2) 1,250 1,250 mcg PO 2XWK 11/25/22 11/25/22 History mcg (50,000 unit) capsule (Vitamin D2) escitalopram oxalate 10 mg tablet 20 mg PO DAILY 11/25/22 11/25/22 History (Lexapro) famotidine 20 mg tablet 20 mg PO HS 11/25/22 11/25/22 History ferrous sulfate 325 mg (65 mg 325 mg PO QDL 11/25/22 11/25/22 History iron) tablet furosemide 40 mg tablet (Lasix) 40 mg PO DAILY 11/25/22 11/25/22 History gabapentin 100 mg capsule 100 mg PO Q12H 11/25/22 11/25/22 History heparin (porcine) 5,000 unit/mL 5,000 unit subcut Q8H 11/25/22 11/25/22 History injection solution hydrocodone 5 mg-acetaminophen 325 1 tab PO TID PRN Pain (Scale Score 11/25/22 11/25/22 History mg tablet 4-6) insulin glargine 100 unit/mL 12 unit subcut HS 11/25/22 11/25/22 History subcutaneous solution (Lantus U-100 Insulin) insulin regular human 100 unit/mL 1 sliding scale dose subcut ACHS 11/25/22 11/25/22 History injection solution (Humulin R Regular U-100 Insulin) magnesium hydroxide 400 mg/5 mL 30 ml PO DAILY PRN Constipation 11/25/22 11/25/22 History oral suspension (Milk of Magnesia) metoprolol succinate 25 mg 12.5 mg PO DAILY 11/25/22 11/25/22 History tablet,extended release 24 hr multivitamin with minerals 1 tab PO DAILY 11/25/22 11/25/22 History naloxone 4 mg/actuation nasal spray 4 mg intranasal DIRECTED PRN 11/25/22 11/25/22 History OVER SEDATION ondansetron HCl 4 mg tablet 4 mg PO Q4H PRN NAUSEA/VOMITING 11/25/22 11/25/22 History pantoprazole 40 mg tablet,delayed 40 mg PO .AC BID 11/25/22 11/25/22 History release polyethylene glycol 3350 17 17 g PO BID 11/25/22 11/25/22 History gram/dose oral powder (Miralax) polyethylene glycol 3350 17 17 g PO QDL PRN Constipation 11/25/22 11/25/22 History gram/dose oral powder (Miralax) sennosides 8.6 mg-docusate sodium 2 tab-cap PO BIDM 11/25/22 11/25/22 History 50 mg capsule (Senna Plus) sennosides 8.6 mg-docusate sodium 1 tab-cap PO QDL PRN Constipation 11/25/22 11/25/22 History 50 mg tablet (Senokot-S) zolpidem 5 mg tablet (Ambien) 12.5 mg PO HS 11/25/22 11/25/22 History Patient History Social History Smoking Status: Unknown if ever smoked Hx Alcohol Use: No Hx Substance Use: No Preferred Language: Spanish Beliefs That Will Affect Care: None Current Living Situation: Rehab Feels Safe at Home: Yes Review of Systems Review of Systems: All systems reviewed & are unremarkable except as noted in HPI & below Physical Exam Constitutional: WD/WN, vitals as above well groomed, cooperative and comfortable Eyes: PERRL, conjunctivae normal, anicteric sclerae ENMT: external ear and nose normal, oropharynx normal Respiratory: normal respiratory effort, lungs clear to auscultation Cardiovascular: RRR, no murmur, no edema Gastrointestinal (Abdomen): normal bowel sounds, soft, nontender, no hepatosplenomegaly Skin: no rashes, warm and dry no jaundice Psychiatric: A+Ox3, euthymic affect Lymphatic: no lymphedema Results & Data Vital Signs (Past 12 Hours) Vital Signs Temp Pulse Pulse Resp BP BP BP 11/26/22 07:43 36.4 C L 73 16 162/75 H 11/26/22 05:41 36.9 C 72 14 135/72 11/26/22 05:41 11/26/22 03:00 75 19 11/26/22 02:00 76 13 11/26/22 01:00 78 16 150/74 H 11/26/22 00:00 82 18 148/76 H 11/25/22 23:00 Pulse Ox Pulse Ox O2 Del Method O2 Del Method 11/26/22 07:43 98 Room Air 11/26/22 05:41 97 Room Air 11/26/22 05:41 96 Room Air 11/26/22 03:00 97 Room Air 11/26/22 02:00 99 Room Air 11/26/22 01:00 95 Room Air 11/26/22 00:00 94 Room Air 11/25/22 23:00 98 Room Air
[2022-11-26 11:32] LABS: Appearance Urine Clear (Clear); Bacteria Urine Automated Negative (Negative); Bilirubin Urine Negative (Negative); Blood Urine 3+ (Negative); Color Urine Yellow; Epithelial Cell Urine Auto 20-30 /lpf (0-5); Glucose Urine UA Negative (Negative); Ketones Urine Negative (Negative); Leukocyte Esterase Urine 1+ (Negative); Nitrite Urine Negative (Negative); Protein Urine 1+ (Negative); RBC Urine Automated 0-4 /hpf (0-4); Specific Gravity Urine 1.012 (1.000-1.030); Urobilinogen Urine Negative (Negative)
[2022-11-26] MEDS: FERROUS SULFATE 325 MG TAB PO SCH (12:04)
--- NOTE | 2022-11-26 12:23 | Electrocardiogram Report ---
Test Reason : Blood Pressure : / mmHG Vent. Rate : 087 BPM Atrial Rate : 087 BPM P-R Int : 196 ms QRS Dur : 074 ms QT Int : 392 ms P-R-T Axes : 039 -26 046 degrees QTc Int : 471 ms Normal sinus rhythm Low voltage QRS Abnormal ECG No previous ECGs available Confirmed by Fermin Mike ([id number]) on 11/26/2022 12:23:08 PM Referred By: REFERRED SELF Confirmed By:Kota Mike
--- NOTE | 2022-11-26 12:37 | Pharmacy Report ---
Pharmacy Glycemic Short Note 2 - Date of Service November 26, 2022 - Glycemic Short BSG Results (Last 24 hours): 11/25/22 11/26/22 11/26/22 22:20 04:08 04:55 Glucose 203 H 45 L* POC Glucose 59 L* 11/26/22 11/26/22 11/26/22 05:03 05:33 07:54 Glucose POC Glucose 85 76 57 L* 11/26/22 11/26/22 11/26/22 07:55 08:22 11:52 Glucose POC Glucose 64 L* 104 H 144 H OUTPATIENT ANTIDIABETIC REGIMEN: * Glargine 12 units HS, Regular insulin ACHS * A1c pending ASSESSMENT: * Patient admitted from outside facility following fall with anemia. * Patient hypoglycemic this morning, started on one liter of D5 + 1/2 NS @ 50 ml/hr. Diet also advanced. * BSG up to 144 mg/dL at lunch. Will set 50% scale for basal tonight, hold if BSG <140 mg/dL * Novolog parameters were loosened to CF 45/ CR 20 by AM provider- continue for now. PLAN FOR INPATIENT GLYCEMIC CONTROL: * Hold outpatient oral diabetes medications * Basal insulin * Lantus 0/5 units SQ HS x1 * Bolus insulin * NovoLog per scale ACHS or Q6hrs while NPO * Goal Range: Low 110 mg/dL - High 140 mg/dL * Correction Factor: 45 mg/dL/unit * Nutritional / Prandial insulin per carb ratio of 1 unit per 20 grams CHO consumed
[2022-11-26 12:45] LABS: Adenovirus F 40/41 PCR Not Detected (NotDetected); Astrovirus PCR Not Detected (NotDetected); Campylobacter PCR Not Detected (NotDetected); Cryptosporidium PCR Not Detected (NotDetected); Cyclospora cayetanensis PCR Not Detected (NotDetected); Entamoeba histolytica PCR Not Detected (NotDetected); Enteroaggregative E.coli(EAEC) Not Detected (NotDetected); Enteropathogenic E.coli (EPEC) Not Detected (NotDetected); Enterotoxigenic E.coli (ETEC) Not Detected (NotDetected); Giardia lamblia PCR Not Detected (NotDetected); Norovirus GI/GII PCR Not Detected (NotDetected); Plesiomonas shigelloides PCR Not Detected (NotDetected); Rotavirus A PCR Not Detected (NotDetected); Salmonella PCR Not Detected (NotDetected); Sapovirus PCR Not Detected (NotDetected); Shiga-like Toxin E.coli (STEC) Not Detected (NotDetected); Shigella/Enteroinvasive E.coli Not Detected (NotDetected); Vibrio cholerae PCR Not Detected (NotDetected); Vibrio species PCR Not Detected (NotDetected); Yersinia enterocolitica PCR Not Detected (NotDetected)
[2022-11-26 12:48] LABS: Cdiff Antigen Positive; Cdiff Toxin A+B Negative Cdiff Toxin (Negative); Cdiff Toxin B Gene (2yr or >) Positive Cdiff Gene (Neg)
[2022-11-26 12:57] LABS: Hematocrit (blood only) 26.3 % (37.0-47.0); Hemoglobin 8.3 g/dl (12.0-16.0)
[2022-11-26 13:22] LABS: Estimated Average Glucose 166 mg/dl; Hemoglobin A1C 7.4 % (4.5-5.6)
[2022-11-26] MEDS: oxyCODONE/ACETAMINOPHEN 5mg/325mg TAB PO PRN ×2 (14:06→20:09)
[2022-11-26] MEDS ORDERED: BENZOCAINE 20% (ORAJEL) 11.9 GM TUBE MT PRN (14:10)
--- NOTE | 2022-11-26 16:20 | Hospitalist Progress Note ---
Date of Service November 26, 2022 Assessment & Plan (1) Encephalopathy: Plan: Altered mental status Likely multifactorial Toxic encephalopathy likely due to polypharmacy of neuropsychotropic medications Hypoglycemia could be contributing as well --CT head:There is no hemorrhage, mass effect, or evidence of acute territorial ischemia by CT criteria. --CT Neck:No acute findings in the cervical spine. 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 difficile gene, negative for toxin Given ongoing diarrhea, will empirically start on p.o. vancomycin Acute on chronic normocytic anemia Positive fecal occult Monitor CBC and transfuse PRBCs as needed Continue PPI Continue iron, B12 supplements Monitor for any GI bleed issues Appreciate GI input Consider repeat EGD, colonoscopy as outpatient If hemoglobin continues to drop, will consider CT abdomen pelvis to rule out bleeding issues given history of nephrectomy Avoid NSAIDs Acute kidney injury Creatinine 1.34> 1.15 Lasix held Received IV fluids Monitor renal function Avoid nephrotoxic agents as able Chronic diastolic heart failure No signs of volume overload Resume Lasix as able Monitor volume status H/O paroxysmal atrial fibrillation Was recommended to have outpatient Zio patch while at [facility] Continue metoprolol Currently not on any anticoagulation Hypertension BP elevated initially Continue metoprolol Monitor H/O GERD Continue PPI DVT Px: SCDs Re: Occult GI bleed, Anemia Code Status Full code Admission and Anticipated Discharge Date Admission Date: November 26, 2022 Subjective Patient is seen and examined at bedside States having diarrhea--had 2 bowel movements today Also reports nausea, headache, dizziness, generalized weakness States having right abdominal incision pain at surgical site Right leg weakness is improving Denies any chest pain, dyspnea, vomiting Review of Systems Review of Systems: All systems reviewed & are unremarkable except as noted in Subjective Physical Exam Physical Exam: Physical Exam: Vitals signs as noted above General Appearance:Moderately built and nourished, no apparent distress, ill appearing Head: normocephalic, Atraumatic Eyes: normal inspection, EOMI Neck: supple, Trachea midline Respiratory/Chest: Decreased breath sounds, CTA, No accessory muscle use Cardiovascular: S1, S2, No murmur Abdomen/GI:Soft, Non tender, +Surgical wound in dressing, Bowel sounds present Extremities/Musculoskeletal:normal inspection, 2+ B/L LE edema Neurologic/Psych:AAOX3, grossly no focal neurological deficits Skin: normal color, warm Results & Data Results & Data Vital Signs (Past 12 Hours) Vital Signs Temp Pulse Pulse Pulse Resp BP BP 11/26/22 15:54 81 11/26/22 15:37 36.8 C 80 18 129/66 11/26/22 08:00 69 11/26/22 11:25 36.7 C 68 16 150/67 H 11/26/22 07:43 36.4 C L 73 16 162/75 H 11/26/22 05:41 36.9 C 72 14 135/72 11/26/22 05:41 Pulse Ox Pulse Ox O2 Del Method O2 Del Method 11/26/22 15:54 11/26/22 15:37 96 Room Air 11/26/22 08:00 11/26/22 11:25 99 Room Air 11/26/22 07:43 98 Room Air 11/26/22 05:41 97 Room Air 11/26/22 05:41 96 Room Air Laboratory Results Short CBC 11/25/22 11/26/22 11/26/22 Range/Units 22:20 04:08 12:17 WBC 8.67 8.54 (4.8-10.8) K/ul Hgb 7.6 L 8.2 L 8.3 L (12.0-16.0) g/dl Hct 22.7 L 25.5 L 26.3 L (37.0-47.0) % Plt Count 276 324 (130-400) K/uL BMP 11/25/22 11/26/22 22:20 04:08 Sodium 138 141 Potassium 4.1 3.8 Chloride 110 H 110 H Carbon Dioxide 22 24 BUN 33 H 33 H Creatinine 1.34 H 1.15 Glucose 203 H 45 L* Calcium 7.1 L 7.8 L Liver Function 11/25/22 Range/Units 22:20 Total Bilirubin 0.2 (0.2-1.0) mg/dl AST 29 (13-39) U/L ALT 17 (7-52) U/L Alkaline Phosphatase 162 H (34-104) U/L Albumin 2.2 L (3.4-5.0) gm/dl Urine 11/26/22 Range/Units 11:07 Urine Color Yellow Urine Appearance Clear (Clear) Urine pH 5.0 (4.5-7.5) Ur Specific Stanton 1.012 (1.000-1.030) Urine Protein 1+ H (Negative) Urine Glucose (UA) Negative (Negative)
[2022-11-26] MEDS: cefTRIAXone SODIUM 1,000 MG in DEXTROSE 5% AD-VAN 50 ML IV SCH (17:21)
[2022-11-26] MEDS: RASPBERRY SYRUP 5 ML UDP PO SCH ×2 (18:07→23:08)
[2022-11-26] MEDS: VANCOMYCIN HCL 125 MG/2.5ML SOLN PO SCH ×2 (18:07→23:08)
[2022-11-26] MEDS: ATORVASTATIN 10 MG TAB PO SCH (20:08)
[2022-11-26] MEDS: FAMOTIDINE 20 MG TAB PO SCH (20:08)
[2022-11-26] MEDS ORDERED: LANTUS PER UNIT CHARGE SQ SCH (21:00)
[2022-11-26] MEDS ORDERED: LANTUS PER UNIT CHARGE SQ ONE (21:00)
[2022-11-27] MEDS: ACETAMINOPHEN 325 MG TAB PO PRN (02:56)
[2022-11-27] MEDS: VANCOMYCIN HCL 125 MG/2.5ML SOLN PO SCH ×4 (05:19→23:14)
[2022-11-27] MEDS: RASPBERRY SYRUP 5 ML UDP PO SCH ×4 (05:19→23:14)
[2022-11-27 07:31] LABS: Hematocrit (blood only) 24.2 % (37.0-47.0); Hemoglobin 7.8 g/dl (12.0-16.0)
[2022-11-27 07:48] LABS: BUN Creatinine Ratio 22.6 (10-20); Calcium 7.3 mg/dl (8.6-10.3); Creatinine Clr Calc Pharmacy 36.4 ml/min; Est GFR (African American) 47.8 ml/min; Est GFR (Non-African American) 41.3 ml/min; Magnesium 1.6 mg/dl (1.7-2.4); Potassium 4.1 mmol/L (3.5-5.1)
[2022-11-27] MEDS: oxyCODONE/ACETAMINOPHEN 5mg/325mg TAB PO PRN ×2 (07:51→17:44)
[2022-11-27] MEDS: PANTOprazole 40 MG TAB PO SCH ×2 (07:52→17:34)
[2022-11-27] MEDS: METOPROLOL SUCC 25MG EXT REL TAB PO SCH (07:52)
[2022-11-27] MEDS: CEROVITE ADV FORMULA TAB PO SCH (07:52)
[2022-11-27] MEDS: CYANOCOBALAMIN (B-12) 500 MCG TABLET PO SCH (07:52)
[2022-11-27 07:59] LABS: Thyroid Stimulating Hormone 11.039 uIu/ml (0.300-4.500)
[2022-11-27] MEDS: INSULIN ASPART PER UNIT CHARGE SC SCH ×4 (08:05→22:26)
[2022-11-27 08:34] LABS: T4 Free Thyroxine 0.72 ng/dl (0.61-1.60)
--- NOTE | 2022-11-27 08:57 | Pharmacy Report ---
Pharmacy Glycemic Short Note 2 - Date of Service November 27, 2022 - Glycemic Short BSG Results (Last 24 hours): 11/26/22 11/26/22 11/26/22 11:52 16:42 19:41 Glucose POC Glucose 144 H 210 H 185 H 11/27/22 11/27/22 06:38 07:23 Glucose 146 H POC Glucose 143 H OUTPATIENT ANTIDIABETIC REGIMEN: * Glargine 12 units HS, Regular insulin ACHS * A1c pending ASSESSMENT: 11/27 * Patient received total of 13 units of insulin yesterday, of which 5 units were basal * Fasting BSG 146 mg/dL - likely will need to titrate up basal once PO intake improves. Dextrose fluids completed yesterday. * Plan to have scale for basal later today 5-8 units HS 11/26 * Patient admitted from outside facility following fall with anemia. * Patient hypoglycemic this morning, started on one liter of D5 + 1/2 NS @ 50 ml/hr. Diet also advanced. * BSG up to 144 mg/dL at lunch. Will set 50% scale for basal tonight, hold if BSG <140 mg/dL * Novolog parameters were loosened to CF 45/ CR 20 by AM provider- continue for now. PLAN FOR INPATIENT GLYCEMIC CONTROL: * Hold outpatient oral diabetes medications * Basal insulin * Lantus 5-8 units HS * Bolus insulin * NovoLog per scale ACHS or Q6hrs while NPO * Goal Range: Low 110 mg/dL - High 140 mg/dL * Correction Factor: 35 mg/dL/unit * Nutritional / Prandial insulin per carb ratio of 1 unit per 12 grams CHO consumed
[2022-11-27] MEDS ORDERED: MAGNESIUM SULFATE / D5W 1 GM/100 ML BAG IV ONE (09:15)
[2022-11-27] MEDS ORDERED: ALUMINUM/MAGNESIUM/SIMETH (MAALOX MAX) 30 ML UDC PO PRN (09:26)
[2022-11-27] MEDS ORDERED: buPROPion HCl 75 MG TABLET PO SCH (09:30)
[2022-11-27] MEDS ORDERED: ESCITALOPRAM OXALATE 20 MG TAB PO SCH (09:30)
[2022-11-27] MEDS: ADVANCED PROBIOTIC 1250 MG CAPSULE PO SCH (09:44)
[2022-11-27] MEDS: cefTRIAXone SODIUM 1,000 MG in DEXTROSE 5% AD-VAN 50 ML IV SCH (09:45)
[2022-11-27] MEDS: FERROUS SULFATE 325 MG TAB PO SCH (11:00)
[2022-11-27] MEDS: ESCITALOPRAM OXALATE 10 MG TAB PO SCH (11:00)
[2022-11-27] MEDS: buPROPion HCl 75 MG TABLET PO SCH ×2 (11:00→22:32)
--- NOTE | 2022-11-27 16:16 | Hospitalist Progress Note ---
Date of Service November 27, 2022 Assessment & Plan (1) Encephalopathy: Plan: Altered mental status Likely multifactorial Toxic encephalopathy likely due to polypharmacy of neuropsychotropic medications Hypoglycemia could be contributing as well --CT head:There is no hemorrhage, mass effect, or evidence of acute territorial ischemia by CT criteria. --CT Neck:No acute findings in the cervical spine. Resumed bupropion at home dose. 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 difficile gene, negative for toxin Given ongoing diarrhea, Continue empiric p.o. vancomycin Acute on chronic normocytic anemia Positive fecal occult Monitor CBC and transfuse PRBCs as needed Continue PPI Continue iron, B12 supplements Monitor for any GI bleed issues Appreciate GI input Consider repeat EGD, colonoscopy as outpatient If hemoglobin continues to drop, will consider CT abdomen pelvis to rule out bleeding issues given history of nephrectomy Avoid NSAIDs Acute kidney injury Creatinine 1.34 Lasix held Received IV fluids Monitor renal function Avoid nephrotoxic agents as able Chronic diastolic heart failure No signs of volume overload Resume Lasix as able Monitor volume status H/O paroxysmal atrial fibrillation Was recommended to have outpatient Zio patch while [place] [facility] Continue metoprolol Currently not on any anticoagulation Hypertension BP relatively low Continue metoprolol with holding parameters Monitor H/O GERD Continue PPI DVT Px: SCDs Re: Occult GI bleed, Anemia Code Status Full code Disposition Rehab as able Admission and Anticipated Discharge Date Admission Date: November 26, 2022 Subjective Patient is seen and examined at bedside States having very poor sleep overnight Also reports abdominal bloating, nausea, flatus Mental status seem to be back to baseline Reports headache this morning Still has diarrhea, slowly improving Abdominal pain improved Denies any chest pain, dyspnea, vomiting Review of Systems Review of Systems: All systems reviewed & are unremarkable except as noted in Subjective Physical Exam Physical Exam: Physical Exam: Vitals signs as noted above General Appearance:Moderately built and nourished, no apparent distress, ill appearing Head: normocephalic, Atraumatic Eyes: normal inspection, EOMI Neck: supple, Trachea midline Respiratory/Chest: Decreased breath sounds, CTA, No accessory muscle use Cardiovascular: S1, S2, No murmur Abdomen/GI:Soft, Non tender, +Surgical wound in dressing, Bowel sounds present Extremities/Musculoskeletal:normal inspection, 2+ B/L LE edema Neurologic/Psych:AAOX3, grossly no focal neurological deficits Skin: normal color, warm Results & Data Results & Data Vital Signs (Past 12 Hours) Vital Signs Temp Pulse Pulse Resp BP Pulse Ox O2 Del Method 11/27/22 16:07 75 11/27/22 15:55 36.4 C L 75 18 103/63 97 Room Air 11/27/22 12:32 36.5 C 77 16 159/73 H 98 Room Air 11/27/22 08:00 73 11/27/22 07:39 37 C 76 18 137/76 97 Room Air Laboratory Results Short CBC 11/27/22 Range/Units 06:38 Hgb 7.8 L (12.0-16.0) g/dl Hct 24.2 L (37.0-47.0) % BMP 11/27/22 06:38 Sodium 141 Potassium 4.1 Chloride 111 H Carbon Dioxide 25 BUN 30 H Creatinine 1.33 H Glucose 146 H Calcium 7.3 L
[2022-11-27] MEDS ORDERED: LANTUS PER UNIT CHARGE SQ ONE (21:00)
[2022-11-27] MEDS: ATORVASTATIN 10 MG TAB PO SCH (22:31)
[2022-11-27] MEDS: FAMOTIDINE 20 MG TAB PO SCH (22:32)
[2022-11-27] MEDS: ZOLPIDEM TARTRATE 5 MG TAB PO SCH (23:02)
[2022-11-28] MEDS: ACETAMINOPHEN 325 MG TAB PO PRN ×2 (04:54→08:56)
[2022-11-28] MEDS: RASPBERRY SYRUP 5 ML UDP PO SCH ×3 (05:22→18:48)
[2022-11-28] MEDS: VANCOMYCIN HCL 125 MG/2.5ML SOLN PO SCH ×3 (05:22→18:48)
[2022-11-28 08:25] LABS: Hematocrit (blood only) 26.8 % (37.0-47.0); Hemoglobin 8.4 g/dl (12.0-16.0)
[2022-11-28 08:33] LABS: Calcium 7.7 mg/dl (8.6-10.3); Creatinine Clr Calc Pharmacy 38.6 ml/min; Est GFR (African American) 51.5 ml/min; Est GFR (Non-African American) 44.5 ml/min; Magnesium 1.6 mg/dl (1.7-2.4); Potassium 3.8 mmol/L (3.5-5.1)
[2022-11-28] MEDS: ADVANCED PROBIOTIC 1250 MG CAPSULE PO SCH (08:43)
[2022-11-28] MEDS: PANTOprazole 40 MG TAB PO SCH ×2 (08:43→17:48)
[2022-11-28] MEDS: CEROVITE ADV FORMULA TAB PO SCH (08:44)
[2022-11-28] MEDS: METOPROLOL SUCC 25MG EXT REL TAB PO SCH (08:44)
[2022-11-28] MEDS: buPROPion HCl 75 MG TABLET PO SCH ×2 (08:44→21:10)
[2022-11-28] MEDS: ESCITALOPRAM OXALATE 10 MG TAB PO SCH (08:44)
[2022-11-28] MEDS: CYANOCOBALAMIN (B-12) 500 MCG TABLET PO SCH (08:44)
[2022-11-28] MEDS: cefTRIAXone SODIUM 1,000 MG in DEXTROSE 5% AD-VAN 50 ML IV SCH (08:57)
[2022-11-28] MEDS: INSULIN ASPART PER UNIT CHARGE SC SCH ×4 (08:57→21:04)
[2022-11-28] MEDS ORDERED: MAGNESIUM SULFATE / D5W 1 GM/100 ML BAG IV ONE (09:13)
[2022-11-28] MEDS: FERROUS SULFATE 325 MG TAB PO SCH (12:19)
[2022-11-28] MEDS: PROMETHAZINE HCL 6.25 MG in SODIUM CHLORIDE 0.9% 50 ML IV PRN ×2 (12:26→17:44)
[2022-11-28] MEDS ORDERED: LANTUS PER UNIT CHARGE SC ONE (16:30)
--- NOTE | 2022-11-28 17:29 | Hospitalist Progress Note ---
Date of Service November 28, 2022 Assessment & Plan (1) Encephalopathy: Plan: Altered mental status Likely multifactorial Toxic encephalopathy likely due to polypharmacy of neuropsychotropic medications Hypoglycemia could be contributing as well --CT head:There is no hemorrhage, mass effect, or evidence of acute territorial ischemia by CT criteria. --CT Neck:No acute findings in the cervical spine. Resumed bupropion at home dose. 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 difficile gene, negative for toxin Given ongoing diarrhea, Continue empiric p.o. vancomycin On and off has been refusing PO Vancomycin--counseled about compliance Acute on chronic normocytic anemia Positive fecal occult Monitor CBC and transfuse PRBCs as needed Continue PPI Continue iron, B12 supplements Monitor for any GI bleed issues Appreciate GI input Consider repeat EGD, colonoscopy as outpatient If hemoglobin continues to drop, will consider CT abdomen pelvis to rule out bleeding issues given history of nephrectomy Avoid NSAIDs Acute kidney injury Creatinine 1.2 Lasix held Received IV fluids Monitor renal function Avoid nephrotoxic agents as able Chronic diastolic heart failure No signs of volume overload Resume Lasix as able Monitor volume status H/O paroxysmal atrial fibrillation Was recommended to have outpatient Zio patch while at [facility] Continue metoprolol Currently not on any anticoagulation Hypertension Continue metoprolol BP elevated today Will consider to add meds as needed Monitor H/O GERD Continue PPI DVT Px: SCDs Re: Occult GI bleed, Anemia Code Status Full code Disposition Rehab when accepted Admission and Anticipated Discharge Date Admission Date: November 26, 2022 Subjective Patient is seen and examined at bedside States feeling much better today Diarrhea improving Did not take p.o. vancomycin overnight No new complaints Denies any chest pain, dyspnea, vomiting, nausea, abdominal pain Waiting for rehab placement Review of Systems Review of Systems: All systems reviewed & are unremarkable except as noted in Subjective Physical Exam Physical Exam: Physical Exam: Vitals signs as noted above General Appearance:Moderately built and nourished, no apparent distress, ill appearing Head: normocephalic, Atraumatic Eyes: normal inspection, EOMI Neck: supple, Trachea midline Respiratory/Chest: Decreased breath sounds, CTA, No accessory muscle use Cardiovascular: S1, S2, No murmur Abdomen/GI:Soft, Non tender, +Surgical wound in dressing, Bowel sounds present Extremities/Musculoskeletal:normal inspection, 2+ B/L LE edema Neurologic/Psych:AAOX3, grossly no focal neurological deficits Skin: normal color, warm Results & Data Results & Data Vital Signs (Past 12 Hours) Vital Signs Temp Pulse Pulse Resp BP Pulse Ox O2 Del Method 11/28/22 16:14 36.9 C 75 16 164/70 H 97 Room Air 11/28/22 15:08 80 11/28/22 07:30 Room Air 11/28/22 07:49 83 Laboratory Results Short CBC 11/28/22 Range/Units 07:30 Hgb 8.4 L (12.0-16.0) g/dl Hct 26.8 L (37.0-47.0) % BMP 11/28/22 07:30 Sodium 140 Potassium 3.8 Chloride 108 H Carbon Dioxide 27 BUN 25 H Creatinine 1.25 H Glucose 209 H Calcium 7.7 L
[2022-11-28] MEDS: oxyCODONE/ACETAMINOPHEN 5mg/325mg TAB PO PRN (17:59)
[2022-11-28] MEDS: FAMOTIDINE 20 MG TAB PO SCH (21:10)
[2022-11-28] MEDS: ATORVASTATIN 10 MG TAB PO SCH (21:10)
[2022-11-29] MEDS: PROMETHAZINE HCL 6.25 MG in SODIUM CHLORIDE 0.9% 50 ML IV PRN ×2 (00:24→06:27)
[2022-11-29] MEDS: VANCOMYCIN HCL 125 MG/2.5ML SOLN PO SCH ×3 (00:28→11:29)
[2022-11-29] MEDS: ZOLPIDEM TARTRATE 5 MG TAB PO SCH (00:28)
[2022-11-29] MEDS: RASPBERRY SYRUP 5 ML UDP PO SCH ×3 (00:28→11:30)
[2022-11-29] MEDS ORDERED: INSULIN ASPART PER UNIT CHARGE SC ONE (02:00)
[2022-11-29 07:51] LABS: Hematocrit (blood only) 26.3 % (37.0-47.0); Hemoglobin 8.4 g/dl (12.0-16.0); Mean Corpuscular Hemoglobin 29.5 pg (25.0-34.0); Mean Corpuscular Hgb Conc 31.9 g/dL (32.0-36.0); Mean Corpuscular Volume 92.3 fL (80.0-100.0); Mean Platelet Volume 9.9 fL (9.4-12.4); Platelet Count 305 K/uL (130-400); RDW Coefficient of Variation 15.7 % (11.5-14.5); RDW Standard Deviation 52.5 fL (36.4-46.3); Red Blood Count 2.85 M/uL (4.20-5.40); White Blood Count 6.97 K/ul (4.8-10.8)
[2022-11-29 08:06] LABS: BUN Creatinine Ratio 16.8 (10-20); Creatinine Clr Calc Pharmacy 47.5 ml/min; Est GFR (African American) 66.7 ml/min; Est GFR (Non-African American) 57.6 ml/min; Magnesium 1.6 mg/dl (1.7-2.4)
[2022-11-29] MEDS: CYANOCOBALAMIN (B-12) 500 MCG TABLET PO SCH (08:41)
[2022-11-29] MEDS: CEROVITE ADV FORMULA TAB PO SCH (08:41)
[2022-11-29] MEDS: buPROPion HCl 75 MG TABLET PO SCH (08:41)
[2022-11-29] MEDS: INSULIN ASPART PER UNIT CHARGE SC SCH ×2 (08:41→12:18)
[2022-11-29] MEDS: ESCITALOPRAM OXALATE 10 MG TAB PO SCH (08:41)
[2022-11-29] MEDS: PANTOprazole 40 MG TAB PO SCH (08:41)
[2022-11-29] MEDS: ADVANCED PROBIOTIC 1250 MG CAPSULE PO SCH (08:41)
[2022-11-29] MEDS: METOPROLOL SUCC 25MG EXT REL TAB PO SCH (08:42)
[2022-11-29] MEDS ORDERED: MAGNESIUM CHLORIDE W/CALCIUM 64MG DELAYED REL TAB PO SCH (09:00)
[2022-11-29] MEDS: FERROUS SULFATE 325 MG TAB PO SCH (11:30)
--- NOTE | 2022-11-29 14:14 | Hospitalist Progress Note ---
Date of Service November 29, 2022 Assessment & Plan (1) Encephalopathy: Plan: Altered mental status Likely multifactorial Toxic encephalopathy likely due to polypharmacy of neuropsychotropic medications Hypoglycemia could be contributing as well --CT head:There is no hemorrhage, mass effect, or evidence of acute territorial ischemia by CT criteria. --CT Neck:No acute findings in the cervical spine. Resumed bupropion at home dose. 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 difficile gene, negative for toxin Given ongoing diarrhea, Continue empiric p.o. vancomycin On and off has been refusing PO Vancomycin--counseled about compliance Acute on chronic normocytic anemia Positive fecal occult Monitor CBC and transfuse PRBCs as needed Continue PPI Continue iron, B12 supplements Monitor for any GI bleed issues Appreciate GI input Consider repeat EGD, colonoscopy as outpatient If hemoglobin continues to drop, will consider CT abdomen pelvis to rule out bleeding issues given history of nephrectomy Avoid NSAIDs Acute kidney injury Creatinine 1.0 today Lasix held Received IV fluids Monitor renal function Avoid nephrotoxic agents as able Chronic diastolic heart failure No signs of volume overload Resume Lasix as able Monitor volume status H/O paroxysmal atrial fibrillation Was recommended to have outpatient Zio patch while at [facility] Continue metoprolol Currently not on any anticoagulation Hypertension Continue metoprolol BP elevated Add Amlodipine Monitor H/O GERD Continue PPI DVT Px: SCDs Re: Occult GI bleed, Anemia Code Status Full code Disposition Rehab Admission and Anticipated Discharge Date Admission Date: November 26, 2022 Subjective Patient is seen and examined at bedside Offers no new complaints Diarrhea continues to improve Denies any chest pain, dyspnea, vomiting, nausea, abdominal pain Plan to discharge to rehab facility today Review of Systems Review of Systems: All systems reviewed & are unremarkable except as noted in Subjective Physical Exam 2 Physical Exam: Physical Exam: Vitals signs as noted above General Appearance:Moderately built and nourished, no apparent distress, ill appearing Head: normocephalic, Atraumatic Eyes: normal inspection, EOMI Neck: supple, Trachea midline Respiratory/Chest: Decreased breath sounds, CTA, No accessory muscle use Cardiovascular: S1, S2, No murmur Abdomen/GI:Soft, Non tender, +Surgical wound in dressing, Bowel sounds present Extremities/Musculoskeletal:normal inspection, 2+ B/L LE edema Neurologic/Psych:AAOX3, grossly no focal neurological deficits Skin: normal color, warm Results & Data Results & Data Vital Signs (Past 12 Hours) Vital Signs Temp Pulse Pulse Resp BP BP Pulse Ox 11/29/22 11:20 36.7 C 80 16 172/73 H 98 11/29/22 07:43 36.8 C 77 16 163/72 H 98 11/29/22 07:19 74 11/29/22 03:03 36.6 C 74 18 161/70 H 97 O2 Del Method 11/29/22 11:20 Room Air 11/29/22 07:43 Room Air 11/29/22 07:19 11/29/22 03:03 Room Air Laboratory Results Short CBC 11/29/22 Range/Units 07:06 WBC 6.97 (4.8-10.8) K/ul Hgb 8.4 L (12.0-16.0) g/dl Hct 26.3 L (37.0-47.0) % Plt Count 305 (130-400) K/uL BMP 11/29/22 07:06 Sodium 142 Potassium 4.0 Chloride 110 H Carbon Dioxide 28 BUN 17 Creatinine 1.01 Glucose 128 H Calcium 8.0 L
[2022-11-29] MEDS ORDERED: amLODIPine BESYLATE 5 MG TAB PO SCH (14:15)
--- NOTE | 2022-11-29 14:28 | Discharge Summary ---
Date of Service November 29, 2022 Admission HPI Per Admitting Provider History obtained from patient and records. Medical history significant for chronic diastolic heart failure (EF 55%, TTE 2022), PAF, HTN, hyperlipidemia, DM2 on oral medications, MED on CPAP, history DVT as per records, GERD, history of gastric bypass, chronic anemia (baseline hemoglobin 8-9), recent nephrectomy for complicated UTI, anxiety/mood disorder. Patient confined at [facility] from November 12 to November 15, 2022 for hyperglycemic crisis, rhabdomyolysis and urosepsis. Hemoglobin A1c noted to be 8.2. Initial TTE showed EF 30 to 35%. CT abdomen pelvis showed right hydronephrosis and perinephric stranding, abscesses, and emphysematous changes. Blood cultures Klebsiella erogenous. Patient transferred to [facility] and confined from November 15 to 2022 for Urology services for emphysematous pyelonephritis. Patient underwent right nephrectomy. Transient atrial fibrillation noted during ICU confinement. TTE showed EF of 55%. Outpatient Zio patch recommended. Serum creatinine 1.5, hemoglobin 9 [address] [facility] to [facility] rehab facility last week. Increased weakness noted at rehab facility yesterday. Patient chest pain, SOB, syncope. Mild headache symptoms. Watery stools without abdominal pain. Head trauma from fall. Patient noted to be more confused than usual. Patient brought to the ER for evaluation. 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 [employer] Admission Exam Per Admitting Provider GENERAL: Lethargic, comfortable, no respiratory distress SKIN: Pallor, warm HEENT: Pale palpebral conjunctivae, no ptosis, dry buccal mucosa NECK : Supple, no tenderness CHEST : Decreased breath sounds, no tenderness HEART : RRR, no obvious murmurs ABDOMEN: Some distention, nontender RECTAL : Intact sphincter, brown stool (FOBT negative) EXTREMITIES : No LE swelling/tenderness, no other conspicuous deformities noted NEUROLOGIC : Lethargic, no facial asymmetry, no other gross focality Principal Diagnosis Acute metabolic encephalopathy Mechanical fall Acute kidney injury Hypoglycemia Diarrhea Acute on chronic anemia Positive fecal occult Hypertension Discharge Data Allergies Allergy/AdvReac Type Severity Reaction Status Date / Time alcohol Allergy Hives Verified 11/26/22 01:02 Penicillins Allergy Hives Verified 11/26/22 01:02 soap AdvReac Rash Verified 11/26/22 01:02 Consultations 11/26/22 00:50 ED Decision to Admit Stat 11/26/22 03:54 Consult Gastroenterology Routine Procedures Performed Laboratory Results WBC 6.97 K/ul (4.8-10.8) 11/29/22 07:06 RBC 2.85 M/uL (4.20-5.40) L 11/29/22 07:06 Hgb 8.4 g/dl (12.0-16.0) L 11/29/22 07:06 Hct 26.3 % (37.0-47.0) L 11/29/22 07:06 MCV 92.3 fL (80.0-100.0) 11/29/22 07:06 MCH 29.5 pg (25.0-34.0) 11/29/22 07:06 MCHC 31.9 g/dL (32.0-36.0) L 11/29/22 07:06 RDW Std Deviation 52.5 fL (36.4-46.3) H 11/29/22 07:06 RDW Coeff of Ramin 15.7 % (11.5-14.5) H 11/29/22 07:06 Plt Count 305 K/uL (130-400) 11/29/22 07:06 MPV 9.9 fL (9.4-12.4) 11/29/22 07:06 Immature Gran % (Auto) 1.2 % 11/26/22 04:08 Neut % (Auto) 72.3 % 11/26/22 04:08 Lymph % (Auto) 16.4 % 11/26/22 04:08 [place] % (Auto) 8.4 % 11/26/22 04:08 Eos % (Auto) 1.1 % 11/26/22 04:08 Baso % (Auto) 0.6 % 11/26/22 04:08 Neut # (Auto) 6.18 K/uL (1.40-6.50) 11/26/22 04:08 Lymph # (Auto) 1.40 K/uL (1.2-3.4) 11/26/22 04:08 [place] # (Auto) 0.72 K/uL (0.11-0.59) H 11/26/22 04:08 Eos # (Auto) 0.09 K/uL (0-0.50) 11/26/22 04:08 Baso # (Auto) 0.05 K/uL (0-0.2) 11/26/22 04:08 Immature Gran # (Auto) 0.10 K/uL (0.01-0.20) 11/26/22 04:08 Polychromasia 1+ 11/25/22 22:20 Sodium 142 mmol/L (136-145) 11/29/22 07:06 Potassium 4.0 mmol/L (3.5-5.1) 11/29/22 07:06 Chloride 110 mmol/L (98-107) H 11/29/22 07:06 Carbon Dioxide 28 mmol/L (21-32) 11/29/22 07:06 Anion Gap 4 (3-11) 11/29/22 07:06 BUN 17 mg/dl (6-23) 11/29/22 07:06 Creatinine 1.01 mg/dl (0.6-1.2) 11/29/22 07:06 Est Cr Clr Drug Dosing 47.5 ml/min 11/29/22 07:06 Est GFR ( Amer) 66.7 ml/min 11/29/22 07:06 Est GFR (Non-Af Amer) 57.6 ml/min 11/29/22 07:06 BUN/Creatinine Ratio 16.8 (10-20) 11/29/22 07:06 Glucose 128 mg/dl (70-99(Fasting)) H 11/29/22 07:06 POC Glucose 117 mg/dl (70-99) H 11/29/22 11:46 Estimat Average Glucose 166 mg/dl 11/26/22 12:17 Hemoglobin A1c 7.4 % (4.5-5.6) H 11/26/22 12:17 Calcium 8.0 mg/dl (8.6-10.3) L 11/29/22 07:06 Magnesium 1.6 mg/dl (1.7-2.4) L 11/29/22 07:06 Total Bilirubin 0.2 mg/dl (0.2-1.0) 11/25/22 22:20 AST 29 U/L (13-39) 11/25/22 22:20 ALT 17 U/L (7-52) 11/25/22 22:20 Alkaline Phosphatase 162 U/L (34-104) H 11/25/22 22:20 Ammonia 20.0 umol/L (18-72) 11/26/22 04:08 Total Protein 4.9 gm/dl (6.0-8.3) L 11/25/22 22:20 Albumin 2.2 gm/dl (3.4-5.0) L 11/25/22 22:20 Globulin 2.7 gm/dl (2.5-4.0) 11/25/22 22:20 Albumin/Globulin Ratio 0.8 (0.9-2) L 11/25/22 22:20 TSH 11.039 uIu/ml (0.300-4.500) H 11/27/22 06:38 Free T4 0.72 ng/dl (0.61-1.60) 11/27/22 06:38 Urine Color Yellow 11/26/22 11:07 Urine Appearance Clear (Clear) 11/26/22 11:07 Urine pH 5.0 (4.5-7.5) 11/26/22 11:07 Ur Specific [place] 1.012 (1.000-1.030) 11/26/22 11:07 Urine Protein 1+ (Negative) H 11/26/22 11:07 Urine Glucose (UA) Negative (Negative) 11/26/22 11:07 Urine Ketones Negative (Negative) 11/26/22 11:07 Urine Blood 3+ (Negative) H 11/26/22 11:07 Urine Nitrite Negative (Negative) 11/26/22 11:07 Urine Bilirubin Negative (Negative) 11/26/22 11:07 Urine Urobilinogen Negative (Negative) 11/26/22 11:07 Ur Leukocyte Esterase 1+ (Negative) H 11/26/22 11:07 Urine WBC (Auto) 10-30 /hpf (0-5) H 11/26/22 11:07 Urine RBC (Auto) 0-4 /hpf (0-4) 11/26/22 11:07 U Hyaline Cast (Auto) 1-5 /lpf (0-5) 11/26/22 11:07 U Epithel Cells (Auto) 20-30 /lpf (0-5) H 11/26/22 11:07 Urine Bacteria (Auto) Negative (Negative) 11/26/22 11:07 Urine Yeast Budding (None Prsent) A 11/26/22 11:07 Nasal Screen MRSA (PCR) Negative (Negative) 11/26/22 Unknown Stl C. cayetanensis PCR Not Detected (NotDetected) 11/26/22 11:09 Stool Rotavirus A PCR Not Detected (NotDetected) 11/26/22 11:09 Stl Adenov F 40/41 PCR Not Detected (NotDetected) 11/26/22 11:09 Stool Astrovirus (PCR) Not Detected (NotDetected) 11/26/22 11:09 Stool Campylobacter PCR Not Detected (NotDetected) 11/26/22 11:09 Stl C. diff Tox B Gene Positive Cdiff Gene (Neg) H 11/26/22 11:09 Stl C.difficile Tox A&B Negative Cdiff Toxin (Negative) 11/26/22 11:09 Stool Cryptosporidium PCR Not Detected (NotDetected) 11/26/22 11:09 Stl E.coli Shiga Tox PCR Not Detected (NotDetected) 11/26/22 11:09 Stl Enterotoxigenic E PCR Not Detected (NotDetected) 11/26/22 11:09 Stool EPEC (PCR) Not Detected (NotDetected) 11/26/22 11:09 Stool EAEC (PCR) Not Detected (NotDetected) 11/26/22 11:09 Stl E. histolytica PCR Not Detected (NotDetected) 11/26/22 11:09 Stool Giardia Lamblia PCR Not Detected (NotDetected) 11/26/22 11:09 Stool Salmonella PCR Not Detected (NotDetected) 11/26/22 11:09 Stool Sapovirus (PCR) Not Detected (NotDetected) 11/26/22 11:09 Stl P. shigelloides PCR Not Detected (NotDetected) 11/26/22 11:09 Stl Shigella/EIEC PCR Not Detected (NotDetected) 11/26/22 11:09 St Y.enterocolitica PCR Not Detected (NotDetected) 11/26/22 11:09 Stool Vibrio (PCR) Not Detected (NotDetected) 11/26/22 11:09 Stl Vibrio cholerae PCR Not Detected (NotDetected) 11/26/22 11:09 Stl Norovirus GI/GII PCR Not Detected (NotDetected) 11/26/22 11:09 SARS-CoV-2, RNA, NAAT NEGATIVE (NEGATIVE) 11/26/22 00:37 Blood Type A Positive 11/26/22 04:08 Antibody Screen NEGATIVE 11/26/22 04:08 Impressions Chest X-Ray 11/25/22 22:20 SINGLE VIEW CHEST CLINICAL HISTORY: Fall. FINDINGS: An AP, portable, supine chest radiograph is obtained. No prior studies are available for comparison at the time of dictation. The heart is mildly enlarged noting atherosclerotic calcification of the thoracic aorta. The pulmonary vasculature is noncongested. The lungs and pleural spaces are clear. No pneumothorax is seen. The skeletal structures are osteopenic. The bony thorax is grossly intact. IMPRESSION: No acute cardiopulmonary abnormality. ACT 112: Negative or not required by law. Electronically signed by: Bao Mac M.D. 11/25/2022 10:[address] 11/25/22 22:21 CT SCAN OF THE BRAIN WITHOUT IV CONTRAST CLINICAL HISTORY: Fall. Head injury. COMPARISON STUDY: No priors. TECHNIQUE: Unenhanced axial CT scan of the brain is performed from the vertex to the skull base. A dose lowering technique was utilized adhering to the principles of ALARA. CT DOSE: 547.75 mGy.cm FINDINGS: Brain parenchyma: There is age-related involutional change noting mild subcortical and periventricular microangiopathic disease. There is no hemorrhage, mass effect, or evidence of acute territorial ischemia by CT criteria. Fontana-white matter differentiation is preserved. No extra-axial fluid collection is seen. Ventricles, sulci, cisterns: Prominent secondary to involutional change. Intracranial vasculature: There is atherosclerotic calcification of the cavernous carotid and vertebral arteries. Calvarium: Skeletal structures are osteopenic. There is no depressed calvarial fracture. Soft tissues: There is a small frontal scalp contusion. Sinuses and mastoids: The visualized paranasal sinuses are clear. The mastoid air cells are well pneumatized. Orbits: The bony orbits are grossly intact. IMPRESSION: There is no hemorrhage, mass effect, or evidence of acute territorial ischemia by CT criteria. ACT 112: Negative or not required by law. Electronically signed by: Bao Mac M.D. 11/25/2022 10:[address] 11/25/22 22:57 Exam(s): CT C SPINE EXAM: CT Cervical Spine Without Intravenous Contrast CLINICAL HISTORY: Reason for exam: fall. TECHNIQUE: Axial computed tomography images of the cervical spine without intravenous contrast. Automated exposure control was utilized for the study. A dose lowering technique was utilized adhering to the principles of ALARA. COMPARISON: No relevant prior studies available. FINDINGS: Vertebrae: Straightening of the normal cervical lordosis. No acute fracture. Discs/spinal canal/neural foramina: Mild to moderate multilevel degenerative change. No spinal canal stenosis. Soft tissues: Unremarkable. Vasculature: Dense calcific atherosclerotic disease of the carotid bulbs. IMPRESSION: No acute findings in the cervical spine. Electronically signed by: Imer Brunner MD 11/25/22 23:30 PM Ordered Studies 11/25/22 22:21 CT head/brain wo con Stat 11/25/22 22:57 CT cervical spine wo con Stat Hospital Course (1) Encephalopathy: Altered mental status Likely multifactorial Toxic encephalopathy likely due to polypharmacy of neuropsychotropic medications Hypoglycemia could be contributing as well --CT head:There is no hemorrhage, mass effect, or evidence of acute territorial ischemia by CT criteria. --CT Neck:No acute findings in the cervical spine. Resumed bupropion at home dose. Resumed Ambien, Lexapro at reduced dose Mental status back to baseline Hold narcotics for excess sedation Discharge to rehab today Mechanical fall Head trauma secondary to above Imaging studies negative for any acute process Fall precautions PT OT eval Abnormal urinalysis UTI ruled out H/O emphysematous pyelonephritis--treated at [facility] November 15 to 2022 S/P right nephrectomy Urine culture--mixed probable skin travis Complete Rocephin 3 day course Hypoglycemia DM II Was admitted at [facility] from November 12- November 15, 2022 for hyp erglycemic crisis, rhabdomyolysis and urosepsis HbA1c 7.4 Continue insulin while hospitalized Glycemic pharmacist consulted Consult personal development educator as well Diarrhea Likely due to laxative use Stool PCR positive for C. difficile gene, negative for toxin Given ongoing diarrhea, Continue empiric p.o. vancomycin On and off has been refusing PO Vancomycin--counseled about compliance Acute on chronic normocytic anemia Positive fecal occult Monitor CBC and transfuse PRBCs as needed Continue PPI Continue iron, B12 supplements Monitor for any GI bleed issues Appreciate GI input Consider repeat EGD, colonoscopy as outpatient If hemoglobin continues to drop, will consider CT abdomen pelvis to rule out bleeding issues given history of nephrectomy Avoid NSAIDs Acute kidney injury Creatinine 1.0 today Lasix held Received IV fluids Monitor renal function Avoid nephrotoxic agents as able Chronic diastolic heart failure No signs of volume overload Resume Lasix as able Monitor volume status H/O paroxysmal atrial fibrillation Was recommended to have outpatient Zio patch while at [facility] Continue metoprolol Currently not on any anticoagulation Hypertension Continue metoprolol BP elevated Add Amlodipine Monitor H/O GERD Continue PPI DVT Px: SCDs Re: Occult GI bleed, Anemia Code Status Full code Disposition Rehab Total Time Total Time Spent Total Time Spent (In Minutes): 54 minutes Discharge Plan Discharge Items Patient Disposition: Transfer Inpatient Rehab Fac Reason For Visit: ANEMIA, OCCULT GI BLEED, ENCEPHALOPATHY Discharge Diagnosis: Acute metabolic encephalopathy Mechanical fall Acute kidney injury Hypoglycemia Diarrhea Acute on chronic anemia Positive fecal occult Hypertension Condition on Discharge: Fair Activity: Per Instructions section Exercise/Sports: Gradually increase as tolerated Non-emergency contact: Primary Care Provider and Distance Learning Unit Leader Call non-emergency contact if: you have any medication questions Follow-up/Referrals: Varinder Wynne M.D. [Primary Care Provider] - Diet: Carb Consistent or DM2 Addtl Attending Provider Instructions: Follow-up with your primary care physician Dr. Wynne in 1 week upon discharge from rehab facility Follow-up with your lead generator for EGD, colonoscopy as outpatient -- Complete p.o. vancomycin course as prescribed for 5 more days. Seek immediate medical attention if your symptoms reoccur or worsen Please take all medications as instructed on discharge list below. Please call if you have any questions or problems. You can reach a [facility] hospitalist on duty at [facility] 24 hours a day by calling [phone] Pending Studies at Discharge: No Stand-Alone Forms: My [facility] Skilled Items Patient informed of condition?: Yes DNR: No Discharge Level of Care: Acute rehab Communicable Disease: No Discharge Prognosis: Stable Lines: None Urinary Catheter: No Medications and DC Order Prescriptions: New oxycodone-acetaminophen [Percocet] 5-325 mg Tablet 1 tab PO Q8H PRNQty: 0 0RF Advanced Probiotic 625 mg (10 billion cell) Capsule 2 cap PO DAILY Qty: 0 0RF vancomycin 1,000 mg Recon Soln 125 mg PO Q6 5 Days Qty: 0 0RF Mag 64 64 mg Tablet,Delayed Release (Dr/Ec) 64 mg PO BID Qty: 0 0RF amlodipine [Norvasc] 5 mg Tablet 2.5 mg PO QAM Qty: 0 0RF Continued furosemide [Lasix] 40 mg Tablet 40 mg PO DAILY Rx Instructions: STARTED 11/24/22 FOR 3 DAYS, ENDS 11/27/22. acetaminophen [Tylenol] 325 mg Tablet 650 mg PO Q4H PRN (Reason: Pain/TEMP) insulin glargine [Lantus U-100 Insulin] 100 unit/mL Solution 12 unit SUBCUT HS atorvastatin 10 mg Tablet 10 mg PO HS ondansetron HCl [Zofran] 4 mg Tablet 4 mg PO Q4H PRN (Reason: NAUSEA/VOMITING) sennosides-docusate sodium [Senokot-S] 8.6-50 mg Tablet 1 tab-cap PO QDL PRN (Reason: Constipation) cyanocobalamin (vitamin B-12) [Vitamin B-12] 1,000 mcg Tablet 1,000 mcg PO DAILY famotidine 20 mg Tablet 20 mg PO HS magnesium hydroxide [Milk of Magnesia] 400 mg/5 mL Suspension 30 ml PO DAILY PRN (Reason: Constipation) pantoprazole 40 mg Tablet,Delayed Release (Dr/Ec) 40 mg PO .AC BID ferrous sulfate 325 mg (65 mg iron) Tablet 325 mg PO QDL Humulin R Regular U-100 Insuln 100 unit/mL Solution 1 sliding scale dose SUBCUT ACHS bupropion HCl 75 mg Tablet 75 mg PO Q12H metoprolol succinate 25 mg Tablet Extended Release 24 Hr 12.5 mg PO DAILY ergocalciferol (vitamin D2) [Vitamin D2] 1,250 mcg (50,000 unit) Capsule 1,250 mcg PO 2XWK Rx Instructions: WEDNESDAY & WEDNESDAYS multivitamin with minerals Tablet 1 tab PO DAILY benzocaine 20 % Gel 1 ea MUCOUS MEMBRANE QID PRN (Reason: INSIDE OF LIP) Prempro 0.625-2.5 mg tablet 1 tab PO DAILY escitalopram oxalate [Lexapro] 10 mg Tablet 20 mg PO DAILY calcium carbonate-vitamin D3 [Calcium 500 + D] 500 mg-10 mcg (400 unit) Tablet 1 tab PO DAILY naloxone 4 mg/actuation [place],Non-Aerosol 4 mg INTRANASAL DIRECTED PRN (Reason: OVER SEDATION) Changed polyethylene glycol 3350 [Miralax] 17 gram/dose Powder 17 g PO DAILY PRN (Reason: Constipation) Qty: 17 0RF zolpidem [Ambien] 5 mg Tablet 5 mg PO HS Qty: 1 0RF docusate sodium 100 mg Capsule 100 mg PO BIDM PRN (Reason: Constipation) Qty: 1 0RF Discontinued cyclobenzaprine [Flexeril] 10 mg Tablet 10 mg PO TID PRN (Reason: MUSCLE SPASMS) hydrocodone-acetaminophen 5-325 mg Tablet 1 tab PO TID PRN (Reason: Pain (Scale Score 4-6)) Rx Instructions: UNSURE OF STRENGTH, NOT NOTED ON MED LIST. gabapentin 100 mg Capsule 100 mg PO Q12H polyethylene glycol 3350 [Miralax] 17 gram/dose Powder 17 g PO QDL PRN (Reason: Constipation) heparin (porcine) 5,000 unit/mL Solution 5,000 unit SUBCUT Q8H Senna Plus 8.6-50 mg Capsule 2 tab-cap PO BIDM Discharge Orders: Discharge Order (Routine); Ordered 11/29/22 Ordered By: Power Ronquillo Admission Data Admit Date/Time: 11/26/22 03:52 Attending Provider: Power Ronquillo Admit Provider: Darrell Kidd Primary Care Provider: Varinder Wynne Other Providers: Roxanne Monroe ; Haroldo Flowers ; Bernie Sr ; Marcy Russo ; Florecita Leon ; Ambar Alvarez ; Jed Delgadillo ; Dipak Healy ; Juan Davalos ; Elijah Bueno ; Celestine Manzano ; [place] Landa ; Nataliya Brown ; Ibeth Horowitz ; Malu Sears ; Daoy Jeffers ; John Love ; Min Ye ; Brittney Trinidad ; Ezra Jimenez Jr ; Darrell Kidd. ; [facility]
[2022-11-29] MEDS ORDERED: LANTUS PER UNIT CHARGE SC SCH (21:00)
== END 2022-11-29 16:31 | DRG 92 ==
LOC: ED 22:08 → 2N 11-26 03:52